=== PATIENT | female | born 1945 | race Caucasian/White ===

== ENCOUNTER → 2016-02-23 | Outpatient (REF) | payer OTHER ==
[~2016-02-23] MED LIST: AMLO2.5T PO; ARIC5TAB PO; ASPI81TA85 PO; BENA25CA2 IVP; BIOT50004 PO; CALC1TAB16 PO; CLOP75TA2 PO; INDA125TA PO; IRON65TA PO; LISI-538 PO; MULT1TAB10 PO; OMEP40CA2 PO; PRAV1TAB39 PO; PRAV20TA2 PO; PREV10CA PO; VALS1TAB46 PO; [UNRECOGNIZED DRUG - CODE] IV; [UNRECOGNIZED DRUG - CODE] PO; [UNRECOGNIZED DRUG - OTHER]
[2016-02-23 17:01] LABS: INR 0.97
[2016-02-23 17:23] LABS: COLLAGEN ADP > 300 SECONDS (56-103)
== END | disposition home or self-care (01) ==
LOC: M LAB REF 16:28
PROVIDERS: ATTEND Internal Medicine Medical Oncology
DX: D68.0 Von Willebrand disease (principal)

== ENCOUNTER → 2016-03-08 | Outpatient (REF) | payer OTHER ==
[~2016-03-08] MED LIST changes: +VALS1TAB47 PO
[2016-03-08 17:10] LABS: MEAN CORPUSCULAR HEMOGLOBIN 29.9 pg (27.0-33.0); MEAN CORPUSCULAR HGB CONC 33.7 g/dl (32.0-36.5); MEAN CORPUSCULAR VOLUME 88.6 fl (80.0-96.0); RED CELL DISTRIBUTION WIDTH 13.1 % (11.5-14.5); WHITE BLOOD COUNT 8.3 K/mm3 (4.0-10.0)
== END ==
LOC: M SFHCPLAZ 13:49
PROVIDERS: ATTEND Internal Medicine
DX: D64.9 Anemia, unspecified (principal)

== ENCOUNTER 2016-03-11 06:43 | Outpatient (CLI) | payer OTHER ==
[~2016-03-11] VITALS: Ht 152.4 cm; Wt 58.0 kg
[~2016-03-11 06:43] MED LIST changes: -VALS1TAB47 PO
[2016-03-11] MEDS ORDERED: diphenhydrAMINE INJ 50MG/ML VIAL (J1200) As Ordered ONE (06:57)
[2016-03-11] MEDS ORDERED: diphenhydrAMINE INJ 50MG/ML VIAL (J1200) IV ONE (07:15)
[2016-03-11] MEDS ORDERED: ANTIHEMOPHILIC FACTOR IV ONE (07:30)
[2016-03-11] MEDS ORDERED: DILUENT IV ONE (07:30)
[2016-03-11] MEDS ORDERED: [UNRECOGNIZED DRUG - OTHER] IV ONE (07:30)
[2016-03-11] MEDS ORDERED: VALS1TAB47 PO (08:56)
== END 2016-03-11 08:00 | disposition home or self-care (01) ==
LOC: M INFU 06:43
PROVIDERS: ATTEND Internal Medicine Medical Oncology
DX: D68.0 Von Willebrand disease (principal)
CPT/HCPCS: 96365; J1200; J7187

== ENCOUNTER 2016-03-11 08:20 | Inpatient (IN) | payer OTHER ==
[~2016-03-11] VITALS: Ht 152.4 cm; Wt 59.4 kg
[2016-03-11] VITALS (7 sets, daily range): BP systolic 120–152; BP diastolic 60–80
[2016-03-11] MEDS ORDERED: BUPIVACAINE LIPOSOME/PF 1.3% 20ML (266MG/20ML) VIAL (EXPAREL) As Ordered ONE (08:28)
[2016-03-11] MEDS ORDERED: BUPIVACAINE HCL 0.25% 10 ML VIAL As Ordered ONE (08:28)
[2016-03-11] MEDS ORDERED: LR 1,000 ML IV SCH ×3 (08:30→11:15)
[2016-03-11] MEDS ORDERED: metroNIDAZOLE 500 MG in APPROPRIATE DILUENT 1 EA IV ONE (08:30)
[2016-03-11] MEDS ORDERED: VALS1TAB47 PO (08:56)
[2016-03-11] MEDS ORDERED: BUPIVACAINE LIPOSOME/PF 1.3% 20ML (266MG/20ML) VIAL (EXPAREL) XX ONE (10:03)
[2016-03-11] MEDS ORDERED: BUPIVACAINE HCL 0.25% 10 ML VIAL XX ONE (10:04)
[2016-03-11] MEDS ORDERED: PROPOFOL 200 MG/20 ML VIAL As Ordered ONE (10:06)
[2016-03-11] MEDS ORDERED: fentaNYL 250 MCG/5 ML INJECTION (J3010) As Ordered ONE (10:06)
[2016-03-11] MEDS ORDERED: ROCURONIUM BROMIDE 50 MG/5 ML VIAL As Ordered ONE (10:06)
[2016-03-11] MEDS ORDERED: MIDAZOLAM INJ 2 MG/2 ML VIAL (J2250) As Ordered ONE (10:06)
[2016-03-11] MEDS ORDERED: GLYCOPYRROLATE INJ 0.2 MG/ML 2 ML VIAL As Ordered ONE (10:07)
[2016-03-11] MEDS ORDERED: HUMATE P IV ONE (11:00)
[2016-03-11] MEDS ORDERED: KETOROLAC 30 MG/ML VIAL (J1885) IV PRN (11:00)
[2016-03-11] MEDS ORDERED: ONDANSETRON 4MG/2ML VIAL (J2405) IV PRN ×2 (11:00→11:15)
[2016-03-11] MEDS ORDERED: ACETAMINOPHEN TAB 650MG DOSE (2X325MG) PO PRN (11:00)
[2016-03-11] MEDS ORDERED: NORCO, ANEXSIA 5/325MG TABLET (HYDROcodone/ACETAMINOPHEN) PO PRN (11:00)
[2016-03-11] MEDS ORDERED: MORPHINE 2 MG/ML 1ML SYRINGE IV PRN (11:00)
[2016-03-11] MEDS ORDERED: fentaNYL 100 MCG/2 ML INJECTION (J3010) IV PRN (11:15)
--- NOTE | 2016-03-11 11:54 | RO ---
DATE OF PROCEDURE: 03/11/2016 PREPROCEDURE DIAGNOSIS: Prolapsing internal hemorrhoids, engorged and swollen external hemorrhoids. PREPROCEDURE DIAGNOSIS: Prolapsing internal hemorrhoids, engorged and swollen external hemorrhoids. PROCEDURE DONE: Examination under anesthesia, excisional hemorrhoidectomy times two. SURGEON: Dr. Nguyen KID CLUB ATTENDANT: ANESTHESIA: General anesthesia. ESTIMATED BLOOD LOSS: Less than 5 mL. COMPLICATIONS: None. REMARKS: The patient tolerated the procedure well. PROCEDURE NOTE: Ms. Lopez is a 71-year-old female who has been going to my office with intermittent complaints of swelling and bleeding from her hemorrhoids. She came back in late January with persistent swelling of her hemorrhoids. Given her discomfort and bleeding with bowel movement for the past month or so, she notably has swollen and prolapsed internal hemorrhoids that I noted on the right lateral and anterior quadrant. She has a concurrent problem with Von Willebrand's disease. She saw her house shorer and she was given Humate P 2 hours prior to her surgery and will be continued perioperatively. She was brought to the operating room. General endotracheal anesthesia started without any complications. She placed in a prone jackknife position. Her buttocks retracted laterally with nylon tapes to further expose the anal verge. The area was then prepped and draped in usual sterile fashion. After surgical time-out, we began our surgery. She has noticeable engorged internal hemorrhoidal bundles, most prominent at the right lateral quadrant. While inserting the univalve anal speculum, the anterior quadrant also was noted to be loose and prolapsing. The left hemorrhoidal bundle was relatively small. I started over the anterior quadrant. The hemorrhoidal bundle, as well as the mucosal covering was lifted up with Allis forceps. The most proximal portion close to where it turns into the rectal mucosa was tied off with #3-0 chromic for hemostatic effect . The mucosa was opened up circumferentially with Bovie cautery. I used a harmonic scalpel to dissect the hemorrhoidal bundle from the sphincter muscles and divide this down to the where I initially put a purse ligature. After this, the redundant mucosa and skin was then closed using the previously placed #3-0 chromic. This was similarly done over the more prominent right lateral bundle. This was lifted off with three pairs of Allis forceps. Again, the most proximal portion was tied off with #3-0 chromic. I opened up the mucosa, as well as the external scan lining with the Bovie cautery and similarly used the Harmonic scalpel to dissect the hemorrhoidal bundle and divided this. After making sure of adequate hemostasis, this was similarly closed with running stitch of #3-0 chromic. I palpated around the left lateral bundle and it seems to be still not that engorged. At this point, I circumferentially injected both subcutaneously and intramuscularly mixture of Exparel and 0.25% bupivacaine for postoperative pain control. A Vaseline gauze and postop underwear were used for coverage. The patient was then placed in supine position, extubated, brought to recovery room stable. AZAEL
[2016-03-11] MEDS: NORCO, ANEXSIA 5/325MG TABLET (HYDROcodone/ACETAMINOPHEN) PO PRN (12:05)
[2016-03-11] MEDS: PRAVASTATIN 20 MG TAB PO SCH (14:28)
[2016-03-11] MEDS: FERROUS SULFATE 325MG TAB PO SCH (14:29)
[2016-03-11] MEDS: SENOKOT S TAB PO SCH ×2 (14:29→22:10)
[2016-03-11] MEDS: OMEPRAZOLE 20 MG CAP PO SCH (14:29)
[2016-03-11] MEDS: VALSARTAN 80 MG TAB (DIOVAN) PO SCH (14:30)
[2016-03-11] MEDS ORDERED: diphenhydrAMINE INJ 50MG/ML VIAL (J1200) IV ONE (14:30)
[2016-03-11] MEDS ORDERED: DILUENT IV ONE (15:00)
[2016-03-11] MEDS ORDERED: [UNRECOGNIZED DRUG - OTHER] IV ONE (15:00)
[2016-03-11] MEDS ORDERED: ANTIHEMOPHILIC FACTOR IV ONE (15:00)
[2016-03-11] MEDS: INDAPAMIDE 1.25MG TABLET PO SCH (18:03)
[2016-03-11] MEDS: DONEPEZIL 5 MG TAB PO SCH (22:11)
[2016-03-12 02:00] VITALS: BP 134/72
[2016-03-12 06:07] LABS: MEAN CORPUSCULAR HGB CONC 34.4 g/dl (32.0-36.5); MEAN CORPUSCULAR VOLUME 87.2 fl (80.0-96.0); WHITE BLOOD COUNT 7.4 K/mm3 (4.0-10.0)
[2016-03-12 06:10] VITALS: BP 124/60
[2016-03-12] MEDS ORDERED: diphenhydrAMINE INJ 50MG/ML VIAL (J1200) IV ONE (07:30)
[2016-03-12] MEDS ORDERED: [UNRECOGNIZED DRUG - OTHER] IV ONE (08:00)
[2016-03-12] MEDS ORDERED: ANTIHEMOPHILIC FACTOR IV ONE (08:00)
[2016-03-12] MEDS ORDERED: DILUENT IV ONE (08:00)
[2016-03-12] MEDS ORDERED: HUMATE P IV SCH (09:00)
[2016-03-12] MEDS: VALSARTAN 80 MG TAB (DIOVAN) PO SCH (09:05)
[2016-03-12] MEDS: INDAPAMIDE 1.25MG TABLET PO SCH (09:05)
[2016-03-12] MEDS: FERROUS SULFATE 325MG TAB PO SCH (09:05)
[2016-03-12] MEDS: OMEPRAZOLE 20 MG CAP PO SCH (09:05)
[2016-03-12] MEDS: SENOKOT S TAB PO SCH ×2 (09:05→20:27)
[2016-03-12] MEDS: PRAVASTATIN 20 MG TAB PO SCH (09:05)
[2016-03-12 10:00] VITALS: BP 142/69
[2016-03-12 14:00] VITALS: BP 110/61
[2016-03-12] MEDS: NORCO, ANEXSIA 5/325MG TABLET (HYDROcodone/ACETAMINOPHEN) PO PRN ×2 (17:40→22:25)
[2016-03-12 18:00] VITALS: BP 134/82
[2016-03-12] MEDS: DONEPEZIL 5 MG TAB PO SCH (20:27)
[2016-03-12 21:20] VITALS: BP 127/64
[2016-03-13 06:25] VITALS: BP 126/67
[2016-03-13] MEDS ORDERED: diphenhydrAMINE INJ 50MG/ML VIAL (J1200) IV ONE (07:30)
[2016-03-13] MEDS ORDERED: DILUENT IV ONE (08:00)
[2016-03-13] MEDS ORDERED: [UNRECOGNIZED DRUG - OTHER] IV ONE (08:00)
[2016-03-13] MEDS ORDERED: ANTIHEMOPHILIC FACTOR IV ONE (08:00)
[2016-03-13] MEDS: INDAPAMIDE 1.25MG TABLET PO SCH (09:15)
[2016-03-13] MEDS: SENOKOT S TAB PO SCH (09:15)
[2016-03-13] MEDS: OMEPRAZOLE 20 MG CAP PO SCH (09:15)
[2016-03-13] MEDS: PRAVASTATIN 20 MG TAB PO SCH (09:15)
[2016-03-13 09:16] VITALS: BP 129/67
[2016-03-13] MEDS: FERROUS SULFATE 325MG TAB PO SCH (09:16)
[2016-03-13] MEDS: VALSARTAN 80 MG TAB (DIOVAN) PO SCH (09:16)
[2016-03-13] MEDS: NORCO, ANEXSIA 5/325MG TABLET (HYDROcodone/ACETAMINOPHEN) PO PRN (09:27)
[2016-03-13 10:00] VITALS: BP 142/93
--- NOTE | 2016-03-21 17:27 | DSES ---
DATE OF ADMISSION: 03/11/2016 DATE OF DISCHARGE: 03/13/2016 DISCHARGE DIAGNOSES: 1. Enlarged and inflamed external, internal hemorrhoids status post excisional hemorrhoidectomy. 2. Von Willebrand's disease. 3. Dementia. DISCHARGE MEDICATIONS: She is continued on her medications that include - donepezil - Aricept 5 mg daily - indapamide 1.25 mg daily - Iron 650 mg daily - multivitamins - omeprazole 40 mg daily - pravastatin 20 mg at bedtime - Valsartan 160 mg at bedtime - Hydrocodone / acetaminophen 5/325 mg tablet every 4 hours as needed for pain She is also getting Humate P infusion daily to be continued on March 14 and . DISCHARGE INSTRUCTIONS: 1. Warm sitz bath twice a day and after every bowel movement Pat area dry. Keep some dry gauze to catch drainage 2. Activity as tolerated. HOSPITAL COURSE: Ms. Lopez is a 71-year-old female with Von Willebrand's disease. She has been complaining of problems with her hemorrhoids, has worsened and now needs surgical excision. She has Von Willebrand's disease with low Willebrand's factor as tested by her computer software engineer. She was given the weight Humate P during the day of the surgery and perioperatively to control for bleeding. She underwent an elective excisional hemorrhoidectomy. Details of that been dictated separately. She did well overall. She was kept in the hospital for Humate P the infusions, which is given perioperatively and is planned to be given up to her 3 days postop. Unfortunately our infusion unit are closed on the weekend that she could not be discharged home. Otherwise she did well. Pain was properly controlled with her pain medication. She did not have any bowel movements during her stay in the hospital. After getting the appropriate time Humate P infusion she was subsequently discharged home. She will follow up with me in two weeks' time.
== END 2016-03-13 12:49 | disposition home or self-care (01) | DRG 348 ==
LOC: M SDC 08:20 → M MSPAV 10:47
PROVIDERS: ADMIT Surgery; ATTEND Surgery
PROC: 0DBQ7ZZ Excision of Anus, Via Natural or Artificial Opening (ICD-10-PCS; principal; 2016-03-11 09:25)
DX: K64.8 Other hemorrhoids (principal); D68.0 Von Willebrand disease; D64.9 Anemia, unspecified; K64.4 Residual hemorrhoidal skin tags; I10 Essential (primary) hypertension; F09 Unspecified mental disorder due to known physiological condition; I25.10 Atherosclerotic heart disease of native coronary artery without angina pectoris; I25.2 Old myocardial infarction; Z87.891 Personal history of nicotine dependence; Z79.899 Other long term (current) drug therapy

== ENCOUNTER 2016-03-14 07:52 | Outpatient (CLI) | payer OTHER ==
[~2016-03-14 07:52] MED LIST changes: +VALS1TAB47 PO
[2016-03-14] MEDS ORDERED: diphenhydrAMINE INJ 50MG/ML VIAL (J1200) IV ONE (08:15)
[2016-03-14 08:53] LABS: MEAN CORPUSCULAR HEMOGLOBIN 30.7 pg (27.0-33.0); MEAN CORPUSCULAR HGB CONC 35.1 g/dl (32.0-36.5); MEAN CORPUSCULAR VOLUME 87.5 fl (80.0-96.0); RED CELL DISTRIBUTION WIDTH 12.7 % (11.5-14.5); WHITE BLOOD COUNT 7.1 K/mm3 (4.0-10.0)
[2016-03-14] MEDS ORDERED: [UNRECOGNIZED DRUG - OTHER] IV ONE (09:00)
[2016-03-14] MEDS ORDERED: ANTIHEMOPHILIC FACTOR IV ONE (09:00)
[2016-03-14] MEDS ORDERED: DILUENT IV ONE (09:00)
== END 2016-03-14 09:45 | disposition home or self-care (01) ==
LOC: M INFU 07:52
PROVIDERS: ATTEND Internal Medicine Medical Oncology
DX: D68.0 Von Willebrand disease (principal)

== ENCOUNTER 2016-03-14 13:04 | Emergency (ER) | payer OTHER ==
[2016-03-14 14:40] LABS: BASO % 0.2 % (0.0-1.0); EOS % 0.6 % (0.0-3.0); LARGE UNSTAINED CELL # 0.1 K/mm3 (0.0-0.4); LARGE UNSTAINED CELL % 1.9 % (0.0-4.0); LYMPH # 0.8 K/mm3 (1.5-4.5); LYMPH % 12.7 % (24.0-44.0); MEAN CORPUSCULAR HEMOGLOBIN 29.9 pg (27.0-33.0); MEAN CORPUSCULAR HGB CONC 34.7 g/dl (32.0-36.5); MEAN CORPUSCULAR VOLUME 86.2 fl (80.0-96.0); MONO # 0.4 K/mm3 (0.0-0.8); MONO % 6.5 % (0.0-5.0); NEUTROPHILS % 78.1 % (36.0-66.0); PLATELET COUNT, AUTOMATED 169 k/mm3 (150-450); RED CELL DISTRIBUTION WIDTH 12.6 % (11.5-14.5); WHITE BLOOD COUNT 6.3 K/mm3 (4.0-10.0)
[2016-03-14 14:43] LABS: INR 0.98
[2016-03-14 14:53] LABS: ALBUMIN 3.8 GM/DL (3.2-5.2); ALBUMIN/GLOBULIN RATIO 1.06 (1.00-1.93); ALKALINE PHOSPHATASE 83 U/L (45-117); ALT/SGPT 83 U/L (12-78); ANION GAP 10 MEQ/L (8-16); AST/SGOT 40 U/L (15-37); BILIRUBIN,TOTAL 0.6 MG/DL (0.2-1.0); BLOOD UREA NITROGEN 10 MG/DL (7-18); CALCIUM LEVEL 8.6 MG/DL (8.8-10.2); CARBON DIOXIDE LEVEL 29 MEQ/L (21-32); CHLORIDE LEVEL 95 MEQ/L (98-107); GLOMERULAR FILTRATION RATE > 60.0 (>39); GLUCOSE, FASTING 126 MG/DL (83-110); POTASSIUM SERUM 3.2 MEQ/L (3.5-5.1); SODIUM LEVEL 134 MEQ/L (136-145); TOTAL PROTEIN 7.4 GM/DL (6.4-8.2)
--- NOTE | 2016-03-14 18:50 | EDDOCDS ---
Nurse's Notes [facility] Name: Emerald Lopez Age: 71 yrs Sex: Female : 1945 Arrival Date: 03/14/2016 Time: 13:04 Bed 4 Private MD: Brendan Ingram Diagnosis: Unspecified injury of hncznv-emev-bmknwqghhvwdrmeq bleeding Presentation: 03/14 13:16 Presenting complaint: Patient states: Patient had a Hemoriod's removed on Monday and js13 started at approx 1200 today. Patient had an infusion Humate P at 0800. Adult Sepsis Screening: The patient does not have new or worsening altered mentation. Patient's respiratory rate is less than 22. Systolic blood pressure is greater than 100. Patient has a qSOFA score of 0- Negative Sepsis Screen. Suicide/Homicide risk assessment- the patient denies having any suicidal and/or homicidal ideations and does not present with any other emotional, behavioral or mental health complaints. Status: Patient is not a auto service representative or dependent. Transition of care: patient was not received from another setting of care. Red Flag criteria, patient assessed and taken directly to a bed. 13:16 Acuity: NEGRO Level 3 js13 13:16 Method Of Arrival: Walkin/Carried/Asstd js13 Triage Assessment: 13:21 General: Appears in no apparent distress, Behavior is appropriate for age, cooperative. js13 Pain: Denies pain. Neurological: Level of Consciousness is awake, alert. Respiratory: No deficits noted. Derm: Skin is pink, warm & dry. Historical: - Allergies: No known drug Allergies; - Home Meds: 1. donepezil 5 mg oral tab 1 tab nightly 2. indapamide 1.25 mg Oral tab 1 tab once daily 3. ferrous sulfate 325 mg (65 mg iron) Oral cpER daily 4. multivitamin Oral tab 1 tablet daily 5. omeprazole 40 mg Oral cpDR 1 cap once daily 6. valsartan 160 mg oral tab 1 tab nightly 7. pravastatin 20 mg oral tab 1 tab nightly - PMHx: CAD; Hypercholesterolemia; Hypertension; Dementia; - PSHx: Cholecystectomy; Hysterectomy; Cardiac stents; Eye Surgeries; - Social history: Smoking status: Patient states former smoker of tobacco. No barriers to communication noted, The patient speaks fluent German. - Family history: Not pertinent. - : The pt / caregiver states he / she is not on anticoagulants. Home medication list is obtained from the patient, family members. - Exposure Risk Screening:: None identified. Screenin:45 Screening information is obtained from the patient. Fall risk: No risks identified. ms18 Assistance ADL's: requires no assistance with activities of daily living. Abuse/DV Screen: The patient / caregiver reports he/she is: not in a situation that causes fear, pain or injury. Nutritional screening: No deficits noted. home support is adequate. 18:17 Advance Directives: There is no living will. ms18 Assessment: 13:45 General: Appears in no apparent distress, comfortable, Behavior is appropriate for age, ms18 cooperative, pleasant. Pain: Location: back and buttocks. Neurological: Level of Consciousness is awake, alert, obeys commands, Oriented to person, place, time. Respiratory: Airway is patent Respiratory effort is even, unlabored. GI: Reports rectal bleeding. Derm: Skin is pink, warm & dry. 14:30 General: Pt in no acute distress. VSS. Will continue to monitor pt. ms18 15:21 General: Appears in no apparent distress, comfortable, Behavior is appropriate for age, ms18 cooperative, pleasant. General: Pt in no acute distress. VSS. Sarina Andrade LOCAL COORDINATOR was just in to see the pt and examine her rectal area. PT not actively bleeding at this time. . Pain: Location: gluteal cleft. Neurological: No deficits noted. Respiratory: No deficits noted. Derm: Skin is pink, warm & dry. 16:06 General: Appears in no apparent distress, comfortable, Behavior is appropriate for age, ms18 cooperative. General: H&H blood draw is for 1730 per L. uLpe LOCAL COORDINATOR. Neurological: Level of Consciousness is awake, alert, obeys commands, Oriented to person, place, time. Respiratory: Airway is patent Respiratory effort is even, unlabored. Derm: Skin is pink, warm & dry. 18:46 General: Appears Behavior is appropriate for age, cooperative, pleasant. Pain: ms18 Location: gluteal cleft Pain currently is 3 out of 10 on a pain scale. Neurological: No deficits noted. Respiratory: Airway is patent Respiratory effort is even, unlabored. GI: Abdomen is non- distended. Derm: Skin is pink, warm & dry. Vital Signs: 13:07 BP 156 / 79; Pulse 60; Resp 18; Temp 98.5(O); Pulse Ox 100% on R/A; Weight 61.23 kg; jrd Height 5 ft. 0 in. (152.40 cm) (R); Pain 0/10; 13:20 BP 155 / 78; Pulse 65; Resp 20; Temp 99.8(TE); Pulse Ox 100% on R/A; Weight 61.23 kg; jlf Height 5 ft. 0 in. (152.40 cm); Pain 9/10; 13:38 BP 149 / 71 (auto/); ms18 13:38 Pulse 58 MON; Pulse Ox 98% ; ms18 13:47 BP 146 / 70 (auto/); ms18 13:48 Pulse 58 MON; Pulse Ox 98% ; ms18 14:02 BP 141 / 74 (auto/); ms18 14:02 Pulse 58 MON; Pulse Ox 96% ; ms18 14:17 BP 145 / 74 (auto/); ms18 14:18 Pulse 56 MON; Pulse Ox 97% ; ms18 14:32 BP 143 / 74 (auto/); ms18 14:32 Pulse 56 MON; Pulse Ox 97% ; ms18 14:47 Pulse 58 MON; Pulse Ox 99% ; ms18 14:47 BP 141 / 74 (auto/); ms18 15:02 BP 136 / 72 (auto/); ms18 15:06 Pulse 64 MON; Pulse Ox 98% ; ms18 15:17 Pulse 64 MON; Pulse Ox 100% ; ms18 15:17 BP 171 / 76 (auto/); Resp 18; ms18 15:31 Pulse 60 MON; Pulse Ox 99% ; ms18 15:32 BP 139 / 65 (auto/); ms18 15:47 BP 133 / 82 (auto/); ms18 15:47 Pulse 60 MON; Pulse Ox 98% ; ms18 16:01 Pulse 64 MON; Pulse Ox 98% ; ms18 16:02 BP 136 / 67 (auto/); ms18 16:17 BP 146 / 70 (auto/); ms18 16:17 Pulse 62 MON; ms18 16:32 BP 150 / 76 (auto/); ms18 16:32 Pulse 60 MON; ms18 16:47 BP 138 / 74 (auto/); ms18 16:47 Pulse 62 MON; ms18 17:02 BP 137 / 70 (auto/); ms18 17:02 Pulse 60 MON; ms18 17:17 BP 140 / 74 (auto/); ms18 17:32 BP 164 / 77 (auto/); ms18 17:47 BP 149 / 74 (auto/); ms18 17:48 Pulse 62 MON; Pulse Ox 95% ; ms18 18:02 BP 137 / 65 (auto/); ms18 18:02 Pulse 58 MON; Pulse Ox 95% ; ms18 18:16 Pulse 60 MON; Pulse Ox 95% ; ms18 18:17 BP 165 / 77 (auto/); Resp 18; Temp 98.8; ms18 13:20 Body Mass Index 26.37 (61.23 kg, 152.40 cm) [facility] Vitals: 13:07 Log In Time: March 14, 2016 at 13:05. jrd 13:07 RN notified that patient meets Red Flag criteria. [facility] ED Course: 13:06 Patient visited by Hesham Boogie PCA. jrd 13:06 Patient moved to Waiting jrd 13:07 Brendan Ingram is Private Physician. jrd 13:14 Jody Bui,RN is Primary Nurse. jlf 13:14 Patient moved to 4 jlf 13:18 Triage Initiated js13 13:20 Patient visited by Austyn Cifuentes PCA. jlf 13:21 Patient visited by Austyn Cifuentes PCA. jlf 13:22 Patient visited by Angela Solis,SUKHDEV. js13 13:44 Patient visited by Jody Bui,SUKHDEV. ms18 13:45 The patient / caregiver is instructed regarding the plan of care and ED course. ms18 Accompanied by Significant Other, Patient has correct armband on for positive identification. Bed in low position. Call light in reach. Side rails up X2. compliance monitor on. Pulse ox on. NIBP on. Property :Personal belongings accompany Pt. 13:45 Inserted saline lock: 20 gauge in left forearm and blood collected. The patient ms18 tolerated the procedure well. 14:19 Pt & Aptt Sent. ms18 14:19 Type & Screen Sent. ms18 14:19 CBC with Diff Sent. ms18 14:19 Complete Comphrensive Metabolic Sent. ms18 14:44 Sarina Andrade FNP is PHCP. le 14:45 Patient visited by Jody Bui RN. ms18 15:05 Patient visited by Sarina Andrade FNP. le 15:06 Patient visited by Sarina Andrade FNP. le 15:21 Patient visited by Jody Bui RN. ms18 16:00 Patient visited by Jody Bui RN. ms18 16:51 Patient visited by Austyn Cifuentes PCA. jlf 17:34 Patient visited by Jody Bui RN. ms18 18:11 Adarsh Nguyen MD is Referral Physician. le 18:17 Discontinued IV lock intact, bleeding controlled, pressure dressing applied, No ms18 redness/swelling at site. No procedures done that require assistance. 18:46 Patient visited by Jody Bui RN. ms18 Order Results: Lab Order: Complete Comphrensive Metabolic; SPEC'M 03/14/16 13:40 Test: GLUCOSE, FASTING; Value: 126; Range: 83-110; Abnormal: Above high normal; Units: MG/DL; Status: F Test: BLOOD UREA NITROGEN; Value: 10; Range: 7-18; Units: MG/DL; Status: F Test: CREATININE FOR GFR; Value: 0.60; Range: 0.55-1.02; Units: MG/DL; Status: F Test: GLOMERULAR FILTRATION RATE; Value: > 60.0; Range: >39; Status: F Test: SODIUM LEVEL; Value: 134; Range: 136-145; Abnormal: Below low normal; Units: MEQ/L; Status: F Test: POTASSIUM SERUM; Value: 3.2; Range: 3.5-5.1; Abnormal: Below low normal; Units: MEQ/L; Status: F Test: CHLORIDE LEVEL; Value: 95; Range: 98-107; Abnormal: Below low normal; Units: MEQ/L; Status: F Test: CARBON DIOXIDE LEVEL; Value: 29; Range: 21-32; Units: MEQ/L; Status: F Test: ANION GAP; Value: 10; Range: 8-16; Units: MEQ/L; Status: F Test: CALCIUM LEVEL; Value: 8.6; Range: 8.8-10.2; Abnormal: Below low normal; Units: MG/DL; Status: F Test: AST/SGOT; Value: 40; Range: 15-37; Abnormal: Above high normal; Units: U/L; Status: F Test: ALT/SGPT; Value: 83; Range: 12-78; Abnormal: Above high normal; Units: U/L; Status: F Test: ALKALINE PHOSPHATASE; Value: 83; Range: 45-117; Units: U/L; Status: F Test: BILIRUBIN,TOTAL; Value: 0.6; Range: 0.2-1.0; Units: MG/DL; Status: F Test: TOTAL PROTEIN; Value: 7.4; Range: 6.4-8.2; Units: GM/DL; Status: F Test: ALBUMIN; Value: 3.8; Range: 3.2-5.2; Units: GM/DL; Status: F Test: ALBUMIN/GLOBULIN RATIO; Value: 1.06; Range: 1.00-1.93; Status: F Test Note: ; Units are mL/min/1.73 m2 Chronic Kidney Disease Staging per NKF: Stage I & II GFR >=60 Normal to Mildly Decreased Stage III GFR 30-59 Moderately Decreased Stage IV GFR 15-29 Severely Decreased Stage V GFR <15 Very Little GFR Left ESRD GFR <15 on IT SECURITY ENGINEER Lab Order: CBC with Diff; SPEC'M 03/14/16 13:40 Test: WHITE BLOOD COUNT; Value: 6.3; Range: 4.0-10.0; Units: K/mm3; Status: F Test: RED BLOOD COUNT; Value: 4.23; Range: 4.00-5.40; Units: M/mm3; Status: F Test: HEMOGLOBIN; Value: 12.6; Range: 12.0-16.0; Units: g/dl; Status: F Test: HEMATOCRIT; Value: 36.4; Range: 36.0-47.0; Units: %; Status: F Test: MEAN CORPUSCULAR VOLUME; Value: 86.2; Range: 80.0-96.0; Units: fl; Status: F Test: MEAN CORPUSCULAR HEMOGLOBIN; Value: 29.9; Range: 27.0-33.0; Units: pg; Status: F Test: MEAN CORPUSCULAR HGB CONC; Value: 34.7; Range: 32.0-36.5; Units: g/dl; Status: F Test: RED CELL DISTRIBUTION WIDTH; Value: 12.6; Range: 11.5-14.5; Units: %; Status: F Test: PLATELET COUNT, AUTOMATED; Value: 169; Range: 150-450; Units: k/mm3; Status: F Test: NEUTROPHILS %; Value: 78.1; Range: 36.0-66.0; Abnormal: Above high normal; Units: %; Status: F Test: LYMPH %; Value: 12.7; Range: 24.0-44.0; Abnormal: Below low normal; Units: %; Status: F Test: MONO %; Value: 6.5; Range: 0.0-5.0; Abnormal: Above high normal; Units: %; Status: F Test: EOS %; Value: 0.6; Range: 0.0-3.0; Units: %; Status: F Test: BASO %; Value: 0.2; Range: 0.0-1.0; Units: %; Status: F Test: LARGE UNSTAINED CELL %; Value: 1.9; Range: 0.0-4.0; Units: %; Status: F Test: NEUTROPHILS #; Value: 5.0; Range: 1.8-7.7; Units: K/mm3; Status: F Test: LYMPH #; Value: 0.8; Range: 1.5-4.5; Abnormal: Below low normal; Units: K/mm3; Status: F Test: MONO #; Value: 0.4; Range: 0.0-0.8; Units: K/mm3; Status: F Test: EOS #; Value: 0.0; Range: 0.0-0.50; Units: K/mm3; Status: F Test: BASO #; Value: 0.0; Range: 0.0-0.2; Units: K/mm3; Status: F Test: LARGE UNSTAINED CELL #; Value: 0.1; Range: 0.0-0.4; Units: K/mm3; Status: F Lab Order: Type & Screen; [facility]' 03/14/16 14:46 Test: BLOOD TYPE; Value: O POS; Status: F Test: AB SCREEN (INDIRECT LUANN)GEL; Value: NEGATIVE; Status: F Lab Order: Pt & Aptt; SPEC' 03/14/16 13:40 Test: PROTHROMBIN TIME; Value: 13.1; Range: 12.3-14.5; Units: SECONDS; Status: F Test: INR; Value: 0.98; Status: F Test: PARTIAL THROMBOPLASTIN TIME; Value: 30.0; Range: 26.6-37.1; Units: SECONDS; Status: F Test Note: ; THERAPUTIC HUMAN INR VALUES INDICATIONS NORMAL RANGES PROPHYLAXIS/TREATMENT OF: VENOUS THROMBOSIS 2.0-3.0 PULMONARY EMBOLISM 2.0-3.0 PREVENTION OF SYSTEMIC EMBOLISM FROM: TISSUE HEART VALVES 2.0-3.0 ACUTE MYOCARDIAL INFARCTION 2.0-3.0 VALVULAR HEART DISEASE 2.0-3.0 ATRIAL FIBRILLATION 2.0-3.0 MECHANICAL VALVES(HIGH RISK) 2.5-3.5 RECURRENT MYOCARDIAL INFARCTION 2.5-3.5 Lab Order: HEMOGLOBIN & HEMATOCRIT; SPEC'M 03/14/16 17:42 Test: HEMOGLOBIN; Value: 12.6; Range: 12.0-16.0; Units: g/dl; Status: F Test: HEMATOCRIT; Value: 36.3; Range: 36.0-47.0; Units: %; Status: F Outcome: 18:11 Discharge ordered by Provider. le 18:17 Discharge Assessment: Patient awake, alert and oriented x 3. No cognitive and/or ms18 functional deficits noted. Patient verbalized understanding of disposition instructions. patient administered narcotics - no. The following High Risk Discharge criteria are identified: None. Discharged to home ambulatory, with significant other. Condition: good Condition: stable Condition: improved. Discharge instructions given to patient, Instructed on discharge instructions, follow up and referral plans. Demonstrated understanding of instructions, Pt was receptive of discharge instructions/ teaching. No special radiology studies were completed. 18:49 Patient left the ED. ms18 Signatures: Sarina Andrade, LOCAL COORDINATOR Angela Teague,RN RN js13 Austyn Cifuentes, RETAIL BUSINESS ANALYST RETAIL BUSINESS ANALYST Jody Wu RN RN ms18 Hesham Boogie, RETAIL BUSINESS ANALYST RETAIL BUSINESS ANALYST jrd MTDD
--- NOTE | 2016-03-14 18:50 | EDDOCDS ---
Physician Documentation [facility] Name: Emerald Lopez Age: 71 yrs Sex: Female : 1945 Arrival Date: 03/14/2016 Time: 13:04 Bed 4 Private MD: Brendan Ingram Disposition: 03/14/16 18:11 Discharged to Home/Self Care. Impression: Unspecified injury of rectum - post-hemorrhoidectomy bleeding. - Condition is Stable. - Discharge Instructions: Hemorrhoidectomy, Care After. - Medication Reconciliation, Local Pharmacy Hours form. - Follow up: Adarsh Nguyen MD; When: Call to arrange an appointment; Reason: Recheck today's complaints, Continuance of care. - Problem is new. - Symptoms have improved. - Notes: Return to the ED for any further concerns Historical: - Allergies: No known drug Allergies; - Home Meds: 1. donepezil 5 mg oral tab 1 tab nightly 2. indapamide 1.25 mg Oral tab 1 tab once daily 3. ferrous sulfate 325 mg (65 mg iron) Oral cpER daily 4. multivitamin Oral tab 1 tablet daily 5. omeprazole 40 mg Oral cpDR 1 cap once daily 6. valsartan 160 mg oral tab 1 tab nightly 7. pravastatin 20 mg oral tab 1 tab nightly - PMHx: CAD; Hypercholesterolemia; Hypertension; Dementia; - PSHx: Cholecystectomy; Hysterectomy; Cardiac stents; Eye Surgeries; - Social history: Smoking status: Patient states former smoker of tobacco. No barriers to communication noted, The patient speaks fluent Armenian. - Family history: Not pertinent. - : The pt / caregiver states he / she is not on anticoagulants. Home medication list is obtained from the patient, family members. - Exposure Risk Screening:: None identified. Vital Signs: 03/14 13:07 BP 156 / 79; Pulse 60; Resp 18; Temp 98.5(O); Pulse Ox 100% on R/A; Weight 61.23 kg / jrd 134.99 lbs; Height 5 ft. 0 in. (152.40 cm) (R); Pain 0/10; 13:20 BP 155 / 78; Pulse 65; Resp 20; Temp 99.8(TE); Pulse Ox 100% on R/A; Weight 61.23 kg / jlf 134.99 lbs; Height 5 ft. 0 in. (152.40 cm); Pain 9/10; 13:38 BP 149 / 71 (auto/); ms18 13:38 Pulse 58 MON; Pulse Ox 98% ; ms18 13:47 BP 146 / 70 (auto/); ms18 13:48 Pulse 58 MON; Pulse Ox 98% ; ms18 14:02 BP 141 / 74 (auto/); ms18 14:02 Pulse 58 MON; Pulse Ox 96% ; ms18 14:17 BP 145 / 74 (auto/); ms18 14:18 Pulse 56 MON; Pulse Ox 97% ; ms18 14:32 BP 143 / 74 (auto/); ms18 14:32 Pulse 56 MON; Pulse Ox 97% ; ms18 14:47 Pulse 58 MON; Pulse Ox 99% ; ms18 14:47 BP 141 / 74 (auto/); ms18 15:02 BP 136 / 72 (auto/); ms18 15:06 Pulse 64 MON; Pulse Ox 98% ; ms18 15:17 Pulse 64 MON; Pulse Ox 100% ; ms18 15:17 BP 171 / 76 (auto/); Resp 18; ms18 15:31 Pulse 60 MON; Pulse Ox 99% ; ms18 15:32 BP 139 / 65 (auto/); ms18 15:47 BP 133 / 82 (auto/); ms18 15:47 Pulse 60 MON; Pulse Ox 98% ; ms18 16:01 Pulse 64 MON; Pulse Ox 98% ; ms18 16:02 BP 136 / 67 (auto/); ms18 16:17 BP 146 / 70 (auto/); ms18 16:17 Pulse 62 MON; ms18 16:32 BP 150 / 76 (auto/); ms18 16:32 Pulse 60 MON; ms18 16:47 BP 138 / 74 (auto/); ms18 16:47 Pulse 62 MON; ms18 17:02 BP 137 / 70 (auto/); ms18 17:02 Pulse 60 MON; ms18 17:17 BP 140 / 74 (auto/); ms18 17:32 BP 164 / 77 (auto/); ms18 17:47 BP 149 / 74 (auto/); ms18 17:48 Pulse 62 MON; Pulse Ox 95% ; ms18 18:02 BP 137 / 65 (auto/); ms18 18:02 Pulse 58 MON; Pulse Ox 95% ; ms18 18:16 Pulse 60 MON; Pulse Ox 95% ; ms18 18:17 BP 165 / 77 (auto/); Resp 18; Temp 98.8; ms18 13:20 Body Mass Index 26.37 (61.23 kg, 152.40 cm) [facility] MDM: 14:03 Complete Comphrensive Metabolic Ordered. EDMS 14:03 CBC with Diff Ordered. EDMS 14:03 Type & Screen Ordered. EDMS 14:03 Pt & Aptt Ordered. EDMS 14:45 CBC with Diff Reviewed. le 15:21 Complete Comphrensive Metabolic Reviewed. le 15:21 Pt & Aptt Reviewed. le 15:41 Redraw Labs ordered. le 15:43 Redraw Labs complete. deg 15:43 HEMOGLOBIN & HEMATOCRIT Ordered. EDMS 18:06 HEMOGLOBIN & HEMATOCRIT Reviewed. le 18:08 Type & Screen Reviewed. le Signatures: Dispatcher [employer] EDLisa Carter, Pipe Fitter [employer] deg Sarina Andrade, EARLY INTERVENTIONIST EARLY INTERVENTIONIST Angela Castillo,RN RN js13 Jody Bui RN RN ms18 MTDD
--- NOTE | 2016-03-16 19:49 | EDDOCDS ---
Physician Documentation [facility] Name: Emerald Lopez Age: 71 yrs Sex: Female : 1945 Arrival Date: 03/14/2016 Time: 13:04 Bed 4 Private MD: Brendan Ingram Disposition: 03/14/16 18:11 Discharged to Home/Self Care. Impression: Unspecified injury of rectum - post-hemorrhoidectomy bleeding. - Condition is Stable. - Discharge Instructions: Hemorrhoidectomy, Care After. - Medication Reconciliation, Local Pharmacy Hours form. - Follow up: Adarsh Nguyen MD; When: Call to arrange an appointment; Reason: Recheck today's complaints, Continuance of care. - Problem is new. - Symptoms have improved. - Notes: Return to the ED for any further concerns Historical: - Allergies: No known drug Allergies; - Home Meds: 1. donepezil 5 mg oral tab 1 tab nightly 2. indapamide 1.25 mg Oral tab 1 tab once daily 3. ferrous sulfate 325 mg (65 mg iron) Oral cpER daily 4. multivitamin Oral tab 1 tablet daily 5. omeprazole 40 mg Oral cpDR 1 cap once daily 6. valsartan 160 mg oral tab 1 tab nightly 7. pravastatin 20 mg oral tab 1 tab nightly - PMHx: CAD; Hypercholesterolemia; Hypertension; Dementia; - PSHx: Cholecystectomy; Hysterectomy; Cardiac stents; Eye Surgeries; - Social history: Smoking status: Patient states former smoker of tobacco. No barriers to communication noted, The patient speaks fluent Sinhala. - Family history: Not pertinent. - : The pt / caregiver states he / she is not on anticoagulants. Home medication list is obtained from the patient, family members. - Exposure Risk Screening:: None identified. Vital Signs: 03/14 13:07 BP 156 / 79; Pulse 60; Resp 18; Temp 98.5(O); Pulse Ox 100% on R/A; Weight 61.23 kg / jrd 134.99 lbs; Height 5 ft. 0 in. (152.40 cm) (R); Pain 0/10; 13:20 BP 155 / 78; Pulse 65; Resp 20; Temp 99.8(TE); Pulse Ox 100% on R/A; Weight 61.23 kg / jlf 134.99 lbs; Height 5 ft. 0 in. (152.40 cm); Pain 9/10; 13:38 BP 149 / 71 (auto/); ms18 13:38 Pulse 58 MON; Pulse Ox 98% ; ms18 13:47 BP 146 / 70 (auto/); ms18 13:48 Pulse 58 MON; Pulse Ox 98% ; ms18 14:02 BP 141 / 74 (auto/); ms18 14:02 Pulse 58 MON; Pulse Ox 96% ; ms18 14:17 BP 145 / 74 (auto/); ms18 14:18 Pulse 56 MON; Pulse Ox 97% ; ms18 14:32 BP 143 / 74 (auto/); ms18 14:32 Pulse 56 MON; Pulse Ox 97% ; ms18 14:47 Pulse 58 MON; Pulse Ox 99% ; ms18 14:47 BP 141 / 74 (auto/); ms18 15:02 BP 136 / 72 (auto/); ms18 15:06 Pulse 64 MON; Pulse Ox 98% ; ms18 15:17 Pulse 64 MON; Pulse Ox 100% ; ms18 15:17 BP 171 / 76 (auto/); Resp 18; ms18 15:31 Pulse 60 MON; Pulse Ox 99% ; ms18 15:32 BP 139 / 65 (auto/); ms18 15:47 BP 133 / 82 (auto/); ms18 15:47 Pulse 60 MON; Pulse Ox 98% ; ms18 16:01 Pulse 64 MON; Pulse Ox 98% ; ms18 16:02 BP 136 / 67 (auto/); ms18 16:17 BP 146 / 70 (auto/); ms18 16:17 Pulse 62 MON; ms18 16:32 BP 150 / 76 (auto/); ms18 16:32 Pulse 60 MON; ms18 16:47 BP 138 / 74 (auto/); ms18 16:47 Pulse 62 MON; ms18 17:02 BP 137 / 70 (auto/); ms18 17:02 Pulse 60 MON; ms18 17:17 BP 140 / 74 (auto/); ms18 17:32 BP 164 / 77 (auto/); ms18 17:47 BP 149 / 74 (auto/); ms18 17:48 Pulse 62 MON; Pulse Ox 95% ; ms18 18:02 BP 137 / 65 (auto/); ms18 18:02 Pulse 58 MON; Pulse Ox 95% ; ms18 18:16 Pulse 60 MON; Pulse Ox 95% ; ms18 18:17 BP 165 / 77 (auto/); Resp 18; Temp 98.8; ms18 13:20 Body Mass Index 26.37 (61.23 kg, 152.40 cm) [facility] MDM: 14:03 Complete Comphrensive Metabolic Ordered. EDMS 14:03 CBC with Diff Ordered. EDMS 14:03 Type & Screen Ordered. EDMS 14:03 Pt & Aptt Ordered. EDMS 14:45 CBC with Diff Reviewed. le 15:21 Complete Comphrensive Metabolic Reviewed. le 15:21 Pt & Aptt Reviewed. le 15:41 Redraw Labs ordered. le 15:43 Redraw Labs complete. deg 15:43 HEMOGLOBIN & HEMATOCRIT Ordered. EDMS 18:06 HEMOGLOBIN & HEMATOCRIT Reviewed. le 18:08 Type & Screen Reviewed. le 03/15 09:48 T-Sheet-- Draft Copy was scanned into [employer]Box and attached to record. gb Signatures: Dispatcher [employer] EDLisa Carter, Mechanical Manufacturing Engineer Unit deg Mounika Gooden, Reg Reg gb Sarina Andrade, VP SALES VP SALES Angela Castillo,RN RN [id number] Jody Bui,RN RN ms18 The chart was reviewed and I authenticate all verbal orders and agree with the evaluation and treatment provided.Attachments: 09:48 T-Sheet-- Draft Copy gb Chart Complete MTDD
--- NOTE | 2016-03-16 19:49 | EDDOCDS ---
Physician Documentation [facility] Name: Emerald Lopez Age: 71 yrs Sex: Female : 1945 Arrival Date: 03/14/2016 Time: 13:04 Bed 4 Private MD: Brendan Ingram Disposition: 03/14/16 18:11 Discharged to Home/Self Care. Impression: Unspecified injury of rectum - post-hemorrhoidectomy bleeding. - Condition is Stable. - Discharge Instructions: Hemorrhoidectomy, Care After. - Medication Reconciliation, Local Pharmacy Hours form. - Follow up: Adarsh Nguyen MD; When: Call to arrange an appointment; Reason: Recheck today's complaints, Continuance of care. - Problem is new. - Symptoms have improved. - Notes: Return to the ED for any further concerns Historical: - Allergies: No known drug Allergies; - Home Meds: 1. donepezil 5 mg oral tab 1 tab nightly 2. indapamide 1.25 mg Oral tab 1 tab once daily 3. ferrous sulfate 325 mg (65 mg iron) Oral cpER daily 4. multivitamin Oral tab 1 tablet daily 5. omeprazole 40 mg Oral cpDR 1 cap once daily 6. valsartan 160 mg oral tab 1 tab nightly 7. pravastatin 20 mg oral tab 1 tab nightly - PMHx: CAD; Hypercholesterolemia; Hypertension; Dementia; - PSHx: Cholecystectomy; Hysterectomy; Cardiac stents; Eye Surgeries; - Social history: Smoking status: Patient states former smoker of tobacco. No barriers to communication noted, The patient speaks fluent Sinhala. - Family history: Not pertinent. - : The pt / caregiver states he / she is not on anticoagulants. Home medication list is obtained from the patient, family members. - Exposure Risk Screening:: None identified. Vital Signs: 03/14 13:07 BP 156 / 79; Pulse 60; Resp 18; Temp 98.5(O); Pulse Ox 100% on R/A; Weight 61.23 kg / jrd 134.99 lbs; Height 5 ft. 0 in. (152.40 cm) (R); Pain 0/10; 13:20 BP 155 / 78; Pulse 65; Resp 20; Temp 99.8(TE); Pulse Ox 100% on R/A; Weight 61.23 kg / jlf 134.99 lbs; Height 5 ft. 0 in. (152.40 cm); Pain 9/10; 13:38 BP 149 / 71 (auto/); ms18 13:38 Pulse 58 MON; Pulse Ox 98% ; ms18 13:47 BP 146 / 70 (auto/); ms18 13:48 Pulse 58 MON; Pulse Ox 98% ; ms18 14:02 BP 141 / 74 (auto/); ms18 14:02 Pulse 58 MON; Pulse Ox 96% ; ms18 14:17 BP 145 / 74 (auto/); ms18 14:18 Pulse 56 MON; Pulse Ox 97% ; ms18 14:32 BP 143 / 74 (auto/); ms18 14:32 Pulse 56 MON; Pulse Ox 97% ; ms18 14:47 Pulse 58 MON; Pulse Ox 99% ; ms18 14:47 BP 141 / 74 (auto/); ms18 15:02 BP 136 / 72 (auto/); ms18 15:06 Pulse 64 MON; Pulse Ox 98% ; ms18 15:17 Pulse 64 MON; Pulse Ox 100% ; ms18 15:17 BP 171 / 76 (auto/); Resp 18; ms18 15:31 Pulse 60 MON; Pulse Ox 99% ; ms18 15:32 BP 139 / 65 (auto/); ms18 15:47 BP 133 / 82 (auto/); ms18 15:47 Pulse 60 MON; Pulse Ox 98% ; ms18 16:01 Pulse 64 MON; Pulse Ox 98% ; ms18 16:02 BP 136 / 67 (auto/); ms18 16:17 BP 146 / 70 (auto/); ms18 16:17 Pulse 62 MON; ms18 16:32 BP 150 / 76 (auto/); ms18 16:32 Pulse 60 MON; ms18 16:47 BP 138 / 74 (auto/); ms18 16:47 Pulse 62 MON; ms18 17:02 BP 137 / 70 (auto/); ms18 17:02 Pulse 60 MON; ms18 17:17 BP 140 / 74 (auto/); ms18 17:32 BP 164 / 77 (auto/); ms18 17:47 BP 149 / 74 (auto/); ms18 17:48 Pulse 62 MON; Pulse Ox 95% ; ms18 18:02 BP 137 / 65 (auto/); ms18 18:02 Pulse 58 MON; Pulse Ox 95% ; ms18 18:16 Pulse 60 MON; Pulse Ox 95% ; ms18 18:17 BP 165 / 77 (auto/); Resp 18; Temp 98.8; ms18 13:20 Body Mass Index 26.37 (61.23 kg, 152.40 cm) [facility] MDM: 14:03 Complete Comphrensive Metabolic Ordered. EDMS 14:03 CBC with Diff Ordered. EDMS 14:03 Type & Screen Ordered. EDMS 14:03 Pt & Aptt Ordered. EDMS 14:45 CBC with Diff Reviewed. le 15:21 Complete Comphrensive Metabolic Reviewed. le 15:21 Pt & Aptt Reviewed. le 15:41 Redraw Labs ordered. le 15:43 Redraw Labs complete. deg 15:43 HEMOGLOBIN & HEMATOCRIT Ordered. EDMS 18:06 HEMOGLOBIN & HEMATOCRIT Reviewed. le 18:08 Type & Screen Reviewed. le 03/15 09:48 T-Sheet-- Draft Copy was scanned into Cherry and attached to record. gb Signatures: Dispatcher [employer] EDLisa Carter, Beet End Supervisor Unit deg Mounika Gooden, Reg Reg gb Sarina Andrade, CHIEF MINISTER CHIEF MINISTER Angela Castillo,RN RN [id number] Jody Bui,RN RN ms18 The chart was reviewed and I authenticate all verbal orders and agree with the evaluation and treatment provided.Attachments: 09:48 T-Sheet-- Draft Copy gb Chart Complete MTDD
--- NOTE | 2016-03-16 19:50 | EDDOCDS ---
Nurse's Notes [facility] Name: Emerald Lopez Age: 71 yrs Sex: Female : 1945 Arrival Date: 03/14/2016 Time: 13:04 Bed 4 Private MD: Brendan Ingram Diagnosis: Unspecified injury of vnwivb-xvsg-sgtaeqbvvyvyckng bleeding Presentation: 03/14 13:16 Presenting complaint: Patient states: Patient had a Hemoriod's removed on Monday and js13 started at approx 1200 today. Patient had an infusion Humate P at 0800. Adult Sepsis Screening: The patient does not have new or worsening altered mentation. Patient's respiratory rate is less than 22. Systolic blood pressure is greater than 100. Patient has a qSOFA score of 0- Negative Sepsis Screen. Suicide/Homicide risk assessment- the patient denies having any suicidal and/or homicidal ideations and does not present with any other emotional, behavioral or mental health complaints. Status: Patient is not a business services clerk or dependent. Transition of care: patient was not received from another setting of care. Red Flag criteria, patient assessed and taken directly to a bed. 13:16 Acuity: NEGRO Level 3 js13 13:16 Method Of Arrival: Walkin/Carried/Asstd js13 Triage Assessment: 13:21 General: Appears in no apparent distress, Behavior is appropriate for age, cooperative. js13 Pain: Denies pain. Neurological: Level of Consciousness is awake, alert. Respiratory: No deficits noted. Derm: Skin is pink, warm & dry. Historical: - Allergies: No known drug Allergies; - Home Meds: 1. donepezil 5 mg oral tab 1 tab nightly 2. indapamide 1.25 mg Oral tab 1 tab once daily 3. ferrous sulfate 325 mg (65 mg iron) Oral cpER daily 4. multivitamin Oral tab 1 tablet daily 5. omeprazole 40 mg Oral cpDR 1 cap once daily 6. valsartan 160 mg oral tab 1 tab nightly 7. pravastatin 20 mg oral tab 1 tab nightly - PMHx: CAD; Hypercholesterolemia; Hypertension; Dementia; - PSHx: Cholecystectomy; Hysterectomy; Cardiac stents; Eye Surgeries; - Social history: Smoking status: Patient states former smoker of tobacco. No barriers to communication noted, The patient speaks fluent Persian. - Family history: Not pertinent. - : The pt / caregiver states he / she is not on anticoagulants. Home medication list is obtained from the patient, family members. - Exposure Risk Screening:: None identified. Screenin:45 Screening information is obtained from the patient. Fall risk: No risks identified. ms18 Assistance ADL's: requires no assistance with activities of daily living. Abuse/DV Screen: The patient / caregiver reports he/she is: not in a situation that causes fear, pain or injury. Nutritional screening: No deficits noted. home support is adequate. 18:17 Advance Directives: There is no living will. ms18 Assessment: 13:45 General: Appears in no apparent distress, comfortable, Behavior is appropriate for age, ms18 cooperative, pleasant. Pain: Location: back and buttocks. Neurological: Level of Consciousness is awake, alert, obeys commands, Oriented to person, place, time. Respiratory: Airway is patent Respiratory effort is even, unlabored. GI: Reports rectal bleeding. Derm: Skin is pink, warm & dry. 14:30 General: Pt in no acute distress. VSS. Will continue to monitor pt. ms18 15:21 General: Appears in no apparent distress, comfortable, Behavior is appropriate for age, ms18 cooperative, pleasant. General: Pt in no acute distress. VSS. Sarina Andrade DROP WIRE OPERATOR was just in to see the pt and examine her rectal area. PT not actively bleeding at this time. . Pain: Location: gluteal cleft. Neurological: No deficits noted. Respiratory: No deficits noted. Derm: Skin is pink, warm & dry. 16:06 General: Appears in no apparent distress, comfortable, Behavior is appropriate for age, ms18 cooperative. General: H&H blood draw is for 1730 per L. Lupe DROP WIRE OPERATOR. Neurological: Level of Consciousness is awake, alert, obeys commands, Oriented to person, place, time. Respiratory: Airway is patent Respiratory effort is even, unlabored. Derm: Skin is pink, warm & dry. 18:46 General: Appears Behavior is appropriate for age, cooperative, pleasant. Pain: ms18 Location: gluteal cleft Pain currently is 3 out of 10 on a pain scale. Neurological: No deficits noted. Respiratory: Airway is patent Respiratory effort is even, unlabored. GI: Abdomen is non- distended. Derm: Skin is pink, warm & dry. Vital Signs: 13:07 BP 156 / 79; Pulse 60; Resp 18; Temp 98.5(O); Pulse Ox 100% on R/A; Weight 61.23 kg; jrd Height 5 ft. 0 in. (152.40 cm) (R); Pain 0/10; 13:20 BP 155 / 78; Pulse 65; Resp 20; Temp 99.8(TE); Pulse Ox 100% on R/A; Weight 61.23 kg; jlf Height 5 ft. 0 in. (152.40 cm); Pain 9/10; 13:38 BP 149 / 71 (auto/); ms18 13:38 Pulse 58 MON; Pulse Ox 98% ; ms18 13:47 BP 146 / 70 (auto/); ms18 13:48 Pulse 58 MON; Pulse Ox 98% ; ms18 14:02 BP 141 / 74 (auto/); ms18 14:02 Pulse 58 MON; Pulse Ox 96% ; ms18 14:17 BP 145 / 74 (auto/); ms18 14:18 Pulse 56 MON; Pulse Ox 97% ; ms18 14:32 BP 143 / 74 (auto/); ms18 14:32 Pulse 56 MON; Pulse Ox 97% ; ms18 14:47 Pulse 58 MON; Pulse Ox 99% ; ms18 14:47 BP 141 / 74 (auto/); ms18 15:02 BP 136 / 72 (auto/); ms18 15:06 Pulse 64 MON; Pulse Ox 98% ; ms18 15:17 Pulse 64 MON; Pulse Ox 100% ; ms18 15:17 BP 171 / 76 (auto/); Resp 18; ms18 15:31 Pulse 60 MON; Pulse Ox 99% ; ms18 15:32 BP 139 / 65 (auto/); ms18 15:47 BP 133 / 82 (auto/); ms18 15:47 Pulse 60 MON; Pulse Ox 98% ; ms18 16:01 Pulse 64 MON; Pulse Ox 98% ; ms18 16:02 BP 136 / 67 (auto/); ms18 16:17 BP 146 / 70 (auto/); ms18 16:17 Pulse 62 MON; ms18 16:32 BP 150 / 76 (auto/); ms18 16:32 Pulse 60 MON; ms18 16:47 BP 138 / 74 (auto/); ms18 16:47 Pulse 62 MON; ms18 17:02 BP 137 / 70 (auto/); ms18 17:02 Pulse 60 MON; ms18 17:17 BP 140 / 74 (auto/); ms18 17:32 BP 164 / 77 (auto/); ms18 17:47 BP 149 / 74 (auto/); ms18 17:48 Pulse 62 MON; Pulse Ox 95% ; ms18 18:02 BP 137 / 65 (auto/); ms18 18:02 Pulse 58 MON; Pulse Ox 95% ; ms18 18:16 Pulse 60 MON; Pulse Ox 95% ; ms18 18:17 BP 165 / 77 (auto/); Resp 18; Temp 98.8; ms18 13:20 Body Mass Index 26.37 (61.23 kg, 152.40 cm) [facility] Vitals: 13:07 Log In Time: March 14, 2016 at 13:05. jrd 13:07 RN notified that patient meets Red Flag criteria. [facility] ED Course: 13:06 Patient visited by Hesham Boogie PCA. jrd 13:06 Patient moved to Waiting jrd 13:07 Brendan Ingram is Private Physician. jrd 13:14 Jody Bui,RN is Primary Nurse. jlf 13:14 Patient moved to 4 jlf 13:18 Triage Initiated js13 13:20 Patient visited by Austyn Cifuentes PCA. jlf 13:21 Patient visited by Austyn Cifuentes PCA. jlf 13:22 Patient visited by Angela Solis,SUKHDEV. js13 13:44 Patient visited by Jody Bui,SUKHDEV. ms18 13:45 The patient / caregiver is instructed regarding the plan of care and ED course. ms18 Accompanied by Significant Other, Patient has correct armband on for positive identification. Bed in low position. Call light in reach. Side rails up X2. automotive finance manager on. Pulse ox on. NIBP on. Property :Personal belongings accompany Pt. 13:45 Inserted saline lock: 20 gauge in left forearm and blood collected. The patient ms18 tolerated the procedure well. 14:19 Pt & Aptt Sent. ms18 14:19 Type & Screen Sent. ms18 14:19 CBC with Diff Sent. ms18 14:19 Complete Comphrensive Metabolic Sent. ms18 14:44 Sarina Andrade FNP is PHCP. le 14:45 Patient visited by Jody Bui RN. ms18 15:05 Patient visited by Sarina Andrade FNP. le 15:06 Patient visited by Sarina Andrade FNP. le 15:21 Patient visited by Jody Bui RN. ms18 16:00 Patient visited by Jody Bui RN. ms18 16:51 Patient visited by Austyn Cifuentes PCA. jlf 17:34 Patient visited by Jody Bui RN. ms18 18:11 Adarsh Nguyen MD is Referral Physician. le 18:17 Discontinued IV lock intact, bleeding controlled, pressure dressing applied, No ms18 redness/swelling at site. No procedures done that require assistance. 18:46 Patient visited by Jody Bui RN. ms18 03/15 09:48 T-Sheet-- Draft Copy was scanned into [employer] and attached to record. gb Order Results: Lab Order: Complete Comphrensive Metabolic; SPEC'M 03/14/16 13:40 Test: GLUCOSE, FASTING; Value: 126; Range: 83-110; Abnormal: Above high normal; Units: MG/DL; Status: F Test: BLOOD UREA NITROGEN; Value: 10; Range: 7-18; Units: MG/DL; Status: F Test: CREATININE FOR GFR; Value: 0.60; Range: 0.55-1.02; Units: MG/DL; Status: F Test: GLOMERULAR FILTRATION RATE; Value: > 60.0; Range: >39; Status: F Test: SODIUM LEVEL; Value: 134; Range: 136-145; Abnormal: Below low normal; Units: MEQ/L; Status: F Test: POTASSIUM SERUM; Value: 3.2; Range: 3.5-5.1; Abnormal: Below low normal; Units: MEQ/L; Status: F Test: CHLORIDE LEVEL; Value: 95; Range: 98-107; Abnormal: Below low normal; Units: MEQ/L; Status: F Test: CARBON DIOXIDE LEVEL; Value: 29; Range: 21-32; Units: MEQ/L; Status: F Test: ANION GAP; Value: 10; Range: 8-16; Units: MEQ/L; Status: F Test: CALCIUM LEVEL; Value: 8.6; Range: 8.8-10.2; Abnormal: Below low normal; Units: MG/DL; Status: F Test: AST/SGOT; Value: 40; Range: 15-37; Abnormal: Above high normal; Units: U/L; Status: F Test: ALT/SGPT; Value: 83; Range: 12-78; Abnormal: Above high normal; Units: U/L; Status: F Test: ALKALINE PHOSPHATASE; Value: 83; Range: 45-117; Units: U/L; Status: F Test: BILIRUBIN,TOTAL; Value: 0.6; Range: 0.2-1.0; Units: MG/DL; Status: F Test: TOTAL PROTEIN; Value: 7.4; Range: 6.4-8.2; Units: GM/DL; Status: F Test: ALBUMIN; Value: 3.8; Range: 3.2-5.2; Units: GM/DL; Status: F Test: ALBUMIN/GLOBULIN RATIO; Value: 1.06; Range: 1.00-1.93; Status: F Test Note: ; Units are mL/min/1.73 m2 Chronic Kidney Disease Staging per NKF: Stage I & II GFR >=60 Normal to Mildly Decreased Stage III GFR 30-59 Moderately Decreased Stage IV GFR 15-29 Severely Decreased Stage V GFR <15 Very Little GFR Left ESRD GFR <15 on ANGLE DOZER OPERATOR Lab Order: CBC with Diff; SPEC'M 03/14/16 13:40 Test: WHITE BLOOD COUNT; Value: 6.3; Range: 4.0-10.0; Units: K/mm3; Status: F Test: RED BLOOD COUNT; Value: 4.23; Range: 4.00-5.40; Units: M/mm3; Status: F Test: HEMOGLOBIN; Value: 12.6; Range: 12.0-16.0; Units: g/dl; Status: F Test: HEMATOCRIT; Value: 36.4; Range: 36.0-47.0; Units: %; Status: F Test: MEAN CORPUSCULAR VOLUME; Value: 86.2; Range: 80.0-96.0; Units: fl; Status: F Test: MEAN CORPUSCULAR HEMOGLOBIN; Value: 29.9; Range: 27.0-33.0; Units: pg; Status: F Test: MEAN CORPUSCULAR HGB CONC; Value: 34.7; Range: 32.0-36.5; Units: g/dl; Status: F Test: RED CELL DISTRIBUTION WIDTH; Value: 12.6; Range: 11.5-14.5; Units: %; Status: F Test: PLATELET COUNT, AUTOMATED; Value: 169; Range: 150-450; Units: k/mm3; Status: F Test: NEUTROPHILS %; Value: 78.1; Range: 36.0-66.0; Abnormal: Above high normal; Units: %; Status: F Test: LYMPH %; Value: 12.7; Range: 24.0-44.0; Abnormal: Below low normal; Units: %; Status: F Test: MONO %; Value: 6.5; Range: 0.0-5.0; Abnormal: Above high normal; Units: %; Status: F Test: EOS %; Value: 0.6; Range: 0.0-3.0; Units: %; Status: F Test: BASO %; Value: 0.2; Range: 0.0-1.0; Units: %; Status: F Test: LARGE UNSTAINED CELL %; Value: 1.9; Range: 0.0-4.0; Units: %; Status: F Test: NEUTROPHILS #; Value: 5.0; Range: 1.8-7.7; Units: K/mm3; Status: F Test: LYMPH #; Value: 0.8; Range: 1.5-4.5; Abnormal: Below low normal; Units: K/mm3; Status: F Test: MONO #; Value: 0.4; Range: 0.0-0.8; Units: K/mm3; Status: F Test: EOS #; Value: 0.0; Range: 0.0-0.50; Units: K/mm3; Status: F Test: BASO #; Value: 0.0; Range: 0.0-0.2; Units: K/mm3; Status: F Test: LARGE UNSTAINED CELL #; Value: 0.1; Range: 0.0-0.4; Units: K/mm3; Status: F Lab Order: Type & Screen; SPEC'M 03/14/16 14:46 Test: BLOOD TYPE; Value: O POS; Status: F Test: AB SCREEN (INDIRECT LUANN)GEL; Value: NEGATIVE; Status: F Lab Order: Pt & Aptt; SPEC'M 03/14/16 13:40 Test: PROTHROMBIN TIME; Value: 13.1; Range: 12.3-14.5; Units: SECONDS; Status: F Test: INR; Value: 0.98; Status: F Test: PARTIAL THROMBOPLASTIN TIME; Value: 30.0; Range: 26.6-37.1; Units: SECONDS; Status: F Test Note: ; THERAPUTIC HUMAN INR VALUES INDICATIONS NORMAL RANGES PROPHYLAXIS/TREATMENT OF: VENOUS THROMBOSIS 2.0-3.0 PULMONARY EMBOLISM 2.0-3.0 PREVENTION OF SYSTEMIC EMBOLISM FROM: TISSUE HEART VALVES 2.0-3.0 ACUTE MYOCARDIAL INFARCTION 2.0-3.0 VALVULAR HEART DISEASE 2.0-3.0 ATRIAL FIBRILLATION 2.0-3.0 MECHANICAL VALVES(HIGH RISK) 2.5-3.5 RECURRENT MYOCARDIAL INFARCTION 2.5-3.5 Lab Order: HEMOGLOBIN & HEMATOCRIT; SPEC'M 03/14/16 17:42 Test: HEMOGLOBIN; Value: 12.6; Range: 12.0-16.0; Units: g/dl; Status: F Test: HEMATOCRIT; Value: 36.3; Range: 36.0-47.0; Units: %; Status: F Outcome: 03/14 18:11 Discharge ordered by Provider. ty 18:17 Discharge Assessment: Patient awake, alert and oriented x 3. No cognitive and/or ms18 functional deficits noted. Patient verbalized understanding of disposition instructions. patient administered narcotics - no. The following High Risk Discharge criteria are identified: None. Discharged to home ambulatory, with significant other. Condition: good Condition: stable Condition: improved. Discharge instructions given to patient, Instructed on discharge instructions, follow up and referral plans. Demonstrated understanding of instructions, Pt was receptive of discharge instructions/ teaching. No special radiology studies were completed. 18:49 Patient left the ED. ms18 Signatures: Mounika Gooden, Sarina Posadas, DROP WIRE OPERATOR DROP WIRE OPERATOR Angela Castillo,RN RN js13 Austyn Cifuentes, DREDGE CAPTAIN DREDGE CAPTAIN theodoref Jody Bui RN RN ms18 Hesham Boogie, DREDGE CAPTAIN DREDGE CAPTAIN jrd Chart Complete MTDD
== END 2016-03-14 18:49 | disposition home or self-care (01) ==
LOC: M ED 13:04
DX: K62.5 Hemorrhage of anus and rectum (principal); Z98.890 Other specified postprocedural states; I10 Essential (primary) hypertension; I25.10 Atherosclerotic heart disease of native coronary artery without angina pectoris; E78.00 Pure hypercholesterolemia, unspecified; K64.9 Unspecified hemorrhoids; D68.0 Von Willebrand disease; F03.90 Unspecified dementia, unspecified severity, without behavioral disturbance, psychotic disturbance, mood disturbance, and anxiety; Z79.899 Other long term (current) drug therapy; Z87.891 Personal history of nicotine dependence
CPT/HCPCS: 36415; 80053; 85014; 85018; 85025; 85027; 85610; 85730; 86850; 86900; 86901; 96365; 96375; 99284; J1200; J7187

== ENCOUNTER 2016-03-15 08:06 | Outpatient (CLI) | payer OTHER ==
[~2016-03-15] VITALS: Ht 152.4 cm; Wt 58.0 kg
[2016-03-15] MEDS ORDERED: diphenhydrAMINE INJ 50MG/ML VIAL (J1200) IV ONE (08:30)
[2016-03-15] MEDS ORDERED: ANTIHEMOPHILIC FACTOR IV ONE (08:30)
[2016-03-15] MEDS ORDERED: [UNRECOGNIZED DRUG - OTHER] IV ONE (08:30)
[2016-03-15] MEDS ORDERED: DILUENT IV ONE (08:30)
[2016-03-15 08:36] LABS: MEAN CORPUSCULAR HEMOGLOBIN 30.4 pg (27.0-33.0); MEAN CORPUSCULAR HGB CONC 35.5 g/dl (32.0-36.5); MEAN CORPUSCULAR VOLUME 85.7 fl (80.0-96.0); RED CELL DISTRIBUTION WIDTH 12.7 % (11.5-14.5); WHITE BLOOD COUNT 6.3 K/mm3 (4.0-10.0)
== END 2016-03-15 09:55 | disposition home or self-care (01) ==
LOC: M INFU 08:06
PROVIDERS: ATTEND Internal Medicine Medical Oncology
DX: D68.0 Von Willebrand disease (principal)
CPT/HCPCS: 36415; 85027; 96365; 96374; J1200; J7187

== ENCOUNTER → 2016-03-18 | Outpatient (REF) | payer OTHER | END | disposition home or self-care (01) | LOC: M LAB REF 09:36 | PROVIDERS: ATTEND Surgery | DX: R19.7 Diarrhea, unspecified (principal) ==

== ENCOUNTER → 2016-06-08 | Outpatient (REF) | payer OTHER ==
[2016-06-08 16:03] LABS: MEAN CORPUSCULAR HEMOGLOBIN 28.3 pg (27.0-33.0); MEAN CORPUSCULAR HGB CONC 32.4 g/dl (32.0-36.5); MEAN CORPUSCULAR VOLUME 87.3 fl (80.0-96.0); RED CELL DISTRIBUTION WIDTH 12.8 % (11.5-14.5); WHITE BLOOD COUNT 4.8 K/mm3 (4.0-10.0)
[2016-06-08 16:44] LABS: ALBUMIN 4.1 GM/DL (3.2-5.2); ALBUMIN/GLOBULIN RATIO 1.32 (1.00-1.93); ALKALINE PHOSPHATASE 64 U/L (45-117); ALT/SGPT 24 U/L (12-78); ANION GAP 8 MEQ/L (8-16); AST/SGOT 23 U/L (15-37); BILIRUBIN,TOTAL 0.5 MG/DL (0.2-1.0); BLOOD UREA NITROGEN 9 MG/DL (7-18); CALCIUM LEVEL 9.2 MG/DL (8.8-10.2); CARBON DIOXIDE LEVEL 32 MEQ/L (21-32); CHLORIDE LEVEL 100 MEQ/L (98-107); CREATININE FOR GFR 0.63 MG/DL (0.55-1.02); GLOMERULAR FILTRATION RATE > 60.0 (>39); GLUCOSE, FASTING 111 MG/DL (83-110); SODIUM LEVEL 140 MEQ/L (136-145); TOTAL PROTEIN 7.2 GM/DL (6.4-8.2)
[2016-06-08 17:08] LABS: FOLATE > 24.0 NG/ML; VITAMIN B12 LEVEL 823 PG/ML
== END ==
LOC: M LABDRAW1 15:34
PROVIDERS: ATTEND Internal Medicine
DX: I10 Essential (primary) hypertension (principal); D64.9 Anemia, unspecified; F09 Unspecified mental disorder due to known physiological condition; F34.1 Dysthymic disorder
CPT/HCPCS: 36415; 80053; 82607; 82746; 84443; 85027; G0463

== ENCOUNTER → 2017-05-31 | Outpatient (REF) | payer OTHER ==
[2017-05-31 12:58] LABS: BASO % 0.5 % (0.0-1.0); EOS % 0.4 % (0.0-3.0); HEMATOCRIT 37.1 % (36.0-47.0); HEMOGLOBIN 12.1 g/dl (12.0-15.5); IMMATURE GRANULOCYTE % 0.3 % (0-3.0); LYMPH # 1.2 10^3/uL (1.5-4.5); LYMPH % 15.9 % (24.0-44.0); MEAN CORPUSCULAR HEMOGLOBIN 26.5 pg (27.0-33.0); MEAN CORPUSCULAR HGB CONC 32.6 g/dl (32.0-36.5); MEAN CORPUSCULAR VOLUME 81.2 fl (80.0-96.0); MONO # 0.5 10^3/uL (0.0-0.8); MONO % 6.9 % (0.0-5.0); NEUTROPHILS # 5.6 10^3/uL (1.8-7.7); PLATELET COUNT, AUTOMATED 220 10^3/uL (150-450); RED BLOOD COUNT 4.57 10^6/uL (4.00-5.40); RED CELL DISTRIBUTION WIDTH 12.8 % (11.5-14.5); WHITE BLOOD COUNT 7.4 10^3/uL (4.0-10.0)
[2017-05-31 13:50] LABS: ALBUMIN 4.2 GM/DL (3.2-5.2); ALBUMIN/GLOBULIN RATIO 1.24 (1.00-1.93); ALKALINE PHOSPHATASE 57 U/L (45-117); ALT/SGPT 23 U/L (12-78); ANION GAP 7 MEQ/L (8-16); AST/SGOT 29 U/L (7-37); BILIRUBIN,TOTAL 0.3 MG/DL (0.2-1.0); BLOOD UREA NITROGEN 13 MG/DL (7-18); CALCIUM LEVEL 9.1 MG/DL (8.8-10.2); CARBON DIOXIDE LEVEL 30 MEQ/L (21-32); CHLORIDE LEVEL 103 MEQ/L (98-107); CREATININE FOR GFR 0.61 MG/DL (0.55-1.30); FREE T4 1.08 NG/DL (0.76-1.46); GLOMERULAR FILTRATION RATE > 60.0 (>39); GLUCOSE, FASTING 109 MG/DL (70-100); POTASSIUM SERUM 4.1 MEQ/L (3.5-5.1); SODIUM LEVEL 140 MEQ/L (136-145); TOTAL PROTEIN 7.6 GM/DL (6.4-8.2)
== END ==
LOC: M SFHCPLAZ 12:01
DX: R63.4 Abnormal weight loss (principal)
CPT/HCPCS: 84443

== ENCOUNTER → 2017-07-26 | Outpatient (REF) | payer OTHER ==
[2017-07-26 11:56] LABS: HEMATOCRIT 34.9 % (36.0-47.0); HEMOGLOBIN 11.2 g/dl (12.0-15.5); MEAN CORPUSCULAR HEMOGLOBIN 25.1 pg (27.0-33.0); MEAN CORPUSCULAR HGB CONC 32.1 g/dl (32.0-36.5); MEAN CORPUSCULAR VOLUME 78.3 fl (80.0-96.0); PLATELET COUNT, AUTOMATED 238 10^3/uL (150-450); RED BLOOD COUNT 4.46 10^6/uL (4.00-5.40); RED CELL DISTRIBUTION WIDTH 14.1 % (11.5-14.5); WHITE BLOOD COUNT 5.3 10^3/uL (4.0-10.0)
[2017-07-26 12:24] LABS: ALBUMIN 4.2 GM/DL (3.2-5.2); ALBUMIN/GLOBULIN RATIO 1.27 (1.00-1.93); ALKALINE PHOSPHATASE 53 U/L (45-117); ALT/SGPT 24 U/L (12-78); ANION GAP 9 MEQ/L (8-16); AST/SGOT 23 U/L (7-37); BILIRUBIN,TOTAL 0.4 MG/DL (0.2-1.0); BLOOD UREA NITROGEN 13 MG/DL (7-18); CALCIUM LEVEL 8.9 MG/DL (8.8-10.2); CARBON DIOXIDE LEVEL 29 MEQ/L (21-32); CHLORIDE LEVEL 101 MEQ/L (98-107); CHOLESTEROL LEVEL 173 MG/DL (<200); CHOLESTEROL RISK RATIO 1.647 (<5); CREATININE FOR GFR 0.63 MG/DL (0.55-1.30); GLOMERULAR FILTRATION RATE > 60.0 (>39); GLUCOSE, FASTING 111 MG/DL (70-100); HDL CHOLESTEROL 105 MG/DL (>40); LDL CHOLESTEROL 57.8 MG/DL (<100); MAGNESIUM LEVEL 2.1 MG/DL (1.8-2.4); NON-HDL-C 68 MG/DL; POTASSIUM SERUM 3.6 MEQ/L (3.5-5.1); SODIUM LEVEL 139 MEQ/L (136-145); THYROID STIMULATING HORMONE 0.974 uIU/ML (0.358-3.740); TOTAL PROTEIN 7.5 GM/DL (6.4-8.2); TRIGLYCERIDES LEVEL 51 MG/DL (<150)
== END ==
LOC: M SFHCPLAZ 09:50
DX: F34.1 Dysthymic disorder (principal); I10 Essential (primary) hypertension; I25.10 Atherosclerotic heart disease of native coronary artery without angina pectoris
CPT/HCPCS: 83735

== ENCOUNTER → 2018-05-23 | Outpatient (REF) | payer MEDICARE ==
[~2018-05-23] MED LIST changes: -AMLO2.5T PO; +AMLO2.5T3 PO; +ARIC1TAB PO; -ARIC5TAB PO; -VALS1TAB46 PO; -VALS1TAB47 PO; +VALS1TAB66 PO; +VALS1TAB67 PO
[2018-05-23 14:11] LABS: ALBUMIN 4.4 GM/DL (3.2-5.2); ALT/SGPT 23 U/L (12-78); BILIRUBIN,TOTAL 0.4 MG/DL (0.2-1.0); BLOOD UREA NITROGEN 16 MG/DL (7-18); CALCIUM LEVEL 9.2 MG/DL (8.8-10.2); CARBON DIOXIDE LEVEL 31 MEQ/L (21-32); CHLORIDE LEVEL 101 MEQ/L (98-107); CREATININE FOR GFR 0.68 MG/DL (0.55-1.30); FOLATE 20.5 NG/ML; GLOMERULAR FILTRATION RATE > 60.0 (>39); GLUCOSE, FASTING 108 MG/DL (70-100); POTASSIUM SERUM 3.7 MEQ/L (3.5-5.1); RHEUMATOID FACTOR QUANT < 10.0 IU/ML (<15.0); SODIUM LEVEL 139 MEQ/L (136-145); TOTAL PROTEIN 7.6 GM/DL (6.4-8.2); VITAMIN B12 LEVEL 648 PG/ML
[2018-05-23 14:20] LABS: HEMOGLOBIN A1c 6.3 %
[2018-05-23 15:12] LABS: ERYTHROCYTE SEDIMENTATION RATE 8 mm/hr (0-30)
[2018-05-23 15:51] LABS: BASO % 0.8 % (0.0-1.0); EOS # 0.1 10^3/uL (0.0-0.50); EOS % 1.9 % (0.0-3.0); HEMATOCRIT 41.9 % (36.0-47.0); HEMOGLOBIN 13.7 g/dl (12.0-15.5); LYMPH # 0.9 10^3/uL (1.5-4.5); LYMPH % 22.5 % (24.0-44.0); MEAN CORPUSCULAR HEMOGLOBIN 28.2 pg (27.0-33.0); MEAN CORPUSCULAR HGB CONC 32.7 g/dl (32.0-36.5); MEAN CORPUSCULAR VOLUME 86.2 fl (80.0-96.0); MONO # 0.4 10^3/uL (0.0-0.8); MONO % 10.3 % (0.0-5.0); NEUTROPHILS # 2.4 10^3/uL (1.8-7.7); NEUTROPHILS % 64.2 % (36.0-66.0); PLATELET COUNT, AUTOMATED 213 10^3/uL (150-450); RED BLOOD COUNT 4.86 10^6/uL (4.00-5.40); WHITE BLOOD COUNT 3.8 10^3/uL (4.0-10.0)
[2018-05-24 13:25] LABS: ALBUMIN 4.47 GM/DL (3.29-5.55); ALBUMIN % 58.8 % (55.8-66.1); ALPHA-1-GLOBULIN % 3.9 % (2.9-4.9); ALPHA-2-GLOBULINS 1.02 GM/DL (0.42-0.99); ALPHA-2-GLOBULINS % 13.4 % (7.1-11.8); BETA-1-GLOBULINS 0.53 GM/DL (0.28-0.60); BETA-2-GLOBULINS 0.37 GM/DL (0.19-0.55); BETA-2-GLOBULINS % 4.9 % (3.2-6.5); GAMMA GLOBULINS 0.91 GM/DL (0.65-1.58)
[2018-05-25 10:03] LABS: DRVV SCREEN 34.1 SEC
[2018-05-25 10:04] LABS: PTT LUPUS TYPE ANTICOAG SCREEN 0.8 (0-1.2)
[2018-05-27 00:07] LABS: VITAMIN E(ALPHA TOCOPHEROL) 14.4 mg/L (9.0-29.0); VITAMIN E(GAMMA TOCOPHEROL) 1.3 mg/L (0.5-4.9)
[2018-05-27 15:50] LABS: VITAMIN B1 LEVEL WHOLE BLOOD 100.8 nmol/L (66.5-200.0); VITAMIN B6,PYRIDOXAL PHOSPHATE 19.8 ug/L (2.0-32.8)
[2018-05-29 00:06] LABS: ANCA-ATYPICAL <1:20 titer (Neg:<1:20); ANTI DOUBLE STRAND-DNA AB 1 IU/mL (0-9); ANTINUCLEAR ANTIBODIES DIRECT Negative (Negative); COPPER PLASMA 104 ug/dL (72-166); CYTOPLASMIC NEUTROP AB ANCA-C <1:20 titer (Neg:<1:20); LEAD BLOOD ADULT <1 ug/dL (0-4); Lyme Disease IgG/IgM Antibodie <0.91 ISR (0.00-0.90); Lyme Disease IgM Ab Quantitati <0.80 index (0.00-0.79); MERCURY LEVEL None Detected ug/L (0.0-14.9); PERINUCLEAR AB ANCA-P <1:20 titer (Neg:<1:20); SJOGREN'S ANTI SS-A <0.2 AI (0.0-0.9); SJOGREN'S ANTI SS-B <0.2 AI (0.0-0.9)
== END ==
LOC: M LABNEURO 08:35
PROVIDERS: ATTEND Psychiatry & Neurology Neurology
DX: F09 Unspecified mental disorder due to known physiological condition (principal); E07.9 Disorder of thyroid, unspecified

== ENCOUNTER → 2018-09-25 | Outpatient (REF) | payer MEDICARE ==
[2018-09-25 15:57] LABS: BASO % 0.3 % (0.0-1.0); EOS % 0.5 % (0.0-3.0); HEMATOCRIT 39.7 % (36.0-47.0); LYMPH # 1.2 10^3/uL (1.5-4.5); LYMPH % 19.3 % (24.0-44.0); MEAN CORPUSCULAR HGB CONC 32.7 g/dl (32.0-36.5); MEAN CORPUSCULAR VOLUME 82.5 fl (80.0-96.0); MONO # 0.6 10^3/uL (0.0-0.8); NEUTROPHILS # 4.2 10^3/uL (1.8-7.7); NEUTROPHILS % 69.6 % (36.0-66.0); PLATELET COUNT, AUTOMATED 245 10^3/uL (150-450); RED BLOOD COUNT 4.81 10^6/uL (4.00-5.40)
[2018-09-25 16:27] LABS: ALBUMIN 3.9 GM/DL (3.2-5.2); ALT/SGPT 21 U/L (12-78); BILIRUBIN,TOTAL 0.6 MG/DL (0.2-1.0); BLOOD UREA NITROGEN 9 MG/DL (7-18); CALCIUM LEVEL 9.1 MG/DL (8.8-10.2); CARBON DIOXIDE LEVEL 31 MEQ/L (21-32); CHLORIDE LEVEL 94 MEQ/L (98-107); CREATININE FOR GFR 0.56 MG/DL (0.55-1.30); FREE T3 2.9 PG/ML (2.2-4.0); FREE T4 1.27 NG/DL (0.76-1.46); GLOMERULAR FILTRATION RATE > 60.0 (>39); GLUCOSE, FASTING 96 MG/DL (70-100); POTASSIUM SERUM 3.6 MEQ/L (3.5-5.1); SODIUM LEVEL 134 MEQ/L (136-145)
== END ==
LOC: M SFHCPLAZ 13:42
PROVIDERS: ATTEND Internal Medicine
DX: R63.4 Abnormal weight loss (principal)
CPT/HCPCS: 36415; 80053; 84439; 84443; 84481; 85025; G0463

== ENCOUNTER → 2018-09-26 | Outpatient (REF) | payer MEDICARE | LOC: M SFHCPLAZ 12:35 | PROVIDERS: ATTEND Internal Medicine | DX: R19.7 Diarrhea, unspecified (principal) ==

== ENCOUNTER → 2018-10-05 | Outpatient (CLI) | payer MEDICARE ==
[~2018-10-05] MED LIST changes: +GASTROGRAFIN SOLUTION 30ML (Q9963) As Ordered ONE; +ISOVUE-370 76% 100ML VIAL (Q9967) As Ordered ONE
--- NOTE | 2018-10-05 17:29 | REP ---
CT abdomen with IV and oral contrast: History: Diarrhea and weight loss. No comparison CT study. CT contrast dose: 100 ml of intravenous Isovue [address] findings: Preliminary digital fence installer helper radiograph shows scoliotic curve of the thoracolumbar spine and clips and sutures in the left upper quadrant of the abdomen. The lung bases are free of infiltrate. No pleural effusion is seen. Liver and the spleen are normal in size homogeneous in texture. The gallbladder surgically absent. There are surgical clips in the left upper quadrant is due to the stomach. No adrenal lesion is seen. The kidneys enhance symmetrically and are morphologically intact. There is a 0.9 cm cyst in the head of the pancreas in the uncinate process. No pancreatic ductal dilation is seen. No pancreatic mass lesion is observed. The gallbladder is surgically absent. Small and large bowel loops are unremarkable in the abdomen. No retroperitoneal mass or adenopathy is seen. Normal caliber aorta. No abdominal wall defect is seen. No evidence of free intraperitoneal air. No bony destructive lesion is appreciated. Impression: Postoperative changes status post cholecystectomy and appendectomy and left upper quadrant surgery. There is a 9 mm cyst in the head of the pancreas. This is of uncertain significance. If there are prior abdominal CT imaging studies these would be helpful for comparison. Failing this, recommend follow-up CT study and 4-6 months. Electronically Signed by Jamal Yanes MD 10/08/2018 08:22 A
== END ==
LOC: M RAD 13:59
PROVIDERS: ATTEND Internal Medicine
DX: R19.7 Diarrhea, unspecified (principal); R63.4 Abnormal weight loss; K86.2 Cyst of pancreas; Z90.49 Acquired absence of other specified parts of digestive tract
CPT/HCPCS: 74160; Q9963; Q9967

== ENCOUNTER → 2018-11-05 | Outpatient (CLI) | payer MEDICARE ==
[~2018-11-05] MED LIST changes: +CALTCHW5 PO; +CITA20TA6 PO; -GASTROGRAFIN SOLUTION 30ML (Q9963) As Ordered ONE; +IRBE150T12 PO; -ISOVUE-370 76% 100ML VIAL (Q9967) As Ordered ONE; +MULTCAP PO; -OMEP40CA2 PO; +OMEP40CA97 PO
[2018-11-05 11:22] LABS: BLOOD UREA NITROGEN 10 MG/DL (7-18); CREATININE FOR GFR 0.61 MG/DL (0.55-1.30); FREE T4 1.26 NG/DL (0.76-1.46); GLOMERULAR FILTRATION RATE > 60.0 (>39); LIPASE 120 U/L (73-393)
[2018-11-06 10:06] LABS: CA19-9 TUMOR MARKER,CARBOHYDRA 6.8 U/ML (<35.0)
[2018-11-08 00:06] LABS: CHROMOGRANIN A 1 nmol/L (0-5); GASTRIN 38 pg/mL (0-115); TISSUE TRANSGLUTAMINASE IgA <2 U/mL (0-3)
== END ==
LOC: M LAB 09:41
PROVIDERS: ATTEND Internal Medicine Gastroenterology
DX: R63.4 Abnormal weight loss (principal)

== ENCOUNTER → 2018-11-12 | Outpatient (CLI) | payer MEDICARE ==
[~2018-11-12] MED LIST changes: -CALTCHW5 PO; -CITA20TA6 PO; -IRBE150T12 PO; -MULTCAP PO; +OMEP40CA2 PO; -OMEP40CA97 PO; +PROHANCE 279.3MG/ML 15ML VIAL (A9576) As Ordered ONE
--- NOTE | 2018-11-12 15:23 | REP ---
MRI PANCREAS WITH AND WITHOUT CONTRAST: COMPARISON: CT 10/05/2018 and 06/07/2017. Once again a cyst is identified in the uncinate process of the pancreas measuring 9 mm in diameter. This is stable. No pancreatic duct dilatation is seen. No other mass or cyst is seen of the pancreas. The patient has had a prior cholecystectomy. Common bile duct has a maximum diameter of 9 mm. There is no definite stricture or filling defect involving the common bile duct. The visualized liver demonstrates no mass. The visualized spleen, adrenals and pancreas are unremarkable. No adenopathy is seen. No free fluid is seen. IMPRESSION: Stable 9 mm cyst in the uncinate process of the pancreas with no suspicious enhancement. Recommend followup MRI in one year. Electronically Signed by Juan Antonio Zurita MD 11/13/2018 09:58 A
== END ==
LOC: M RAD 13:01
PROVIDERS: ATTEND Internal Medicine Gastroenterology
DX: K86.2 Cyst of pancreas (principal)
CPT/HCPCS: 74183; A9576

== ENCOUNTER → 2019-05-22 | Outpatient (REF) | payer MEDICARE ==
[~2019-05-22] MED LIST changes: +CALTCHW5 PO; +CITA20TA6 PO; +IRBE150T7 PO; +MULTCAP PO; -OMEP40CA2 PO; +OMEP40CA97 PO; -PROHANCE 279.3MG/ML 15ML VIAL (A9576) As Ordered ONE
[2019-05-22 17:26] LABS: HEMATOCRIT 43.1 % (36.0-47.0); HEMOGLOBIN 13.6 g/dl (12.0-15.5); MEAN CORPUSCULAR HEMOGLOBIN 27.5 pg (27.0-33.0); MEAN CORPUSCULAR HGB CONC 31.6 g/dl (32.0-36.5); MEAN CORPUSCULAR VOLUME 87.2 fl (80.0-96.0); PLATELET COUNT, AUTOMATED 240 10^3/uL (150-450); RED BLOOD COUNT 4.94 10^6/uL (4.00-5.40); WHITE BLOOD COUNT 5.7 10^3/uL (4.0-10.0)
[2019-05-22 17:36] LABS: ALBUMIN 4.1 GM/DL (3.2-5.2); ALT/SGPT 24 U/L (12-78); BILIRUBIN,TOTAL 0.3 MG/DL (0.2-1.0); BLOOD UREA NITROGEN 27 MG/DL (7-18); CALCIUM LEVEL 9.9 MG/DL (8.8-10.2); CARBON DIOXIDE LEVEL 29 MEQ/L (21-32); CHLORIDE LEVEL 106 MEQ/L (98-107); CHOLESTEROL LEVEL 236 MG/DL (<200); CHOLESTEROL RISK RATIO 1.873 (<5); CREATININE FOR GFR 0.66 MG/DL (0.55-1.30); GLOMERULAR FILTRATION RATE > 60.0 (>39); GLUCOSE, FASTING 120 MG/DL (70-100); HDL CHOLESTEROL 126 MG/DL (>40); LDL CHOLESTEROL 95 MG/DL (<100); MAGNESIUM LEVEL 2.2 MG/DL (1.8-2.4); NON-HDL-C 110 MG/DL; POTASSIUM SERUM 3.5 MEQ/L (3.5-5.1); SODIUM LEVEL 141 MEQ/L (136-145); TOTAL PROTEIN 7.9 GM/DL (6.4-8.2); TRIGLYCERIDES LEVEL 77 MG/DL (<150)
== END ==
LOC: M SFHCPLAZ 14:05
PROVIDERS: ATTEND Internal Medicine
DX: D68.0 Von Willebrand disease (principal); D64.9 Anemia, unspecified; I10 Essential (primary) hypertension; I25.10 Atherosclerotic heart disease of native coronary artery without angina pectoris
CPT/HCPCS: 36415; 80053; 80061; 83735; 85027; G0463

== ENCOUNTER → 2019-11-12 | Outpatient (CLI) | payer SELFPAY ==
[~2019-11-12] MED LIST changes: -ASPI81TA85 PO; +ASPI81TA86 PO
== END ==
LOC: M LABSMTC 09:56
PROVIDERS: ATTEND Pediatrics
DX: Z20.828 Contact with and (suspected) exposure to other viral communicable diseases (principal)

== ENCOUNTER → 2019-11-21 | Outpatient (CLI) | payer SELFPAY | LOC: M LABSMTC 12:51 | PROVIDERS: ATTEND Pediatrics | DX: Z20.828 Contact with and (suspected) exposure to other viral communicable diseases (principal) ==

== ENCOUNTER → 2019-12-02 | Outpatient (REF) | payer MEDICARE ==
[2019-12-02 13:51] LABS: BASO % 0.6 % (0.0-1.0); EOS % 0.4 % (0.0-3.0); HEMOGLOBIN 12.6 g/dl (12.0-15.5); LYMPH % 19.6 % (24.0-44.0); MEAN CORPUSCULAR HEMOGLOBIN 28.8 pg (27.0-33.0); MEAN CORPUSCULAR HGB CONC 31.5 g/dl (32.0-36.5); MEAN CORPUSCULAR VOLUME 91.3 fl (80.0-96.0); MONO # 0.5 10^3/uL (0.0-0.8); MONO % 9.6 % (0.0-5.0); NEUTROPHILS # 3.5 10^3/uL (1.5-8.5); NEUTROPHILS % 69.6 % (36.0-66.0); PLATELET COUNT, AUTOMATED 217 10^3/uL (150-450); RED BLOOD COUNT 4.38 10^6/uL (4.00-5.40)
[2019-12-02 14:31] LABS: ALBUMIN 3.7 GM/DL (3.2-5.2); ALT/SGPT 20 U/L (12-78); BILIRUBIN,TOTAL 0.5 MG/DL (0.2-1.0); BLOOD UREA NITROGEN 21 MG/DL (7-18); CALCIUM LEVEL 9.3 MG/DL (8.8-10.2); CARBON DIOXIDE LEVEL 32 MEQ/L (21-32); CHLORIDE LEVEL 106 MEQ/L (98-107); CHOLESTEROL LEVEL 215 MG/DL (<200); CHOLESTEROL RISK RATIO 2.028 (<5); CREATININE FOR GFR 0.58 MG/DL (0.55-1.30); GLOMERULAR FILTRATION RATE > 60.0 (>39); GLUCOSE, FASTING 85 MG/DL (70-100); HDL CHOLESTEROL 106 MG/DL (>40); LDL CHOLESTEROL 95 MG/DL (<100); MAGNESIUM LEVEL 2.3 MG/DL (1.8-2.4); NON-HDL-C 109 MG/DL; POTASSIUM SERUM 3.9 MEQ/L (3.5-5.1); SODIUM LEVEL 142 MEQ/L (136-145); TRIGLYCERIDES LEVEL 70 MG/DL (<150)
== END ==
LOC: M SFHCPLAZ 09:34
PROVIDERS: ATTEND Internal Medicine
DX: I25.10 Atherosclerotic heart disease of native coronary artery without angina pectoris (principal); I10 Essential (primary) hypertension; D68.0 Von Willebrand disease; F34.1 Dysthymic disorder
CPT/HCPCS: 36415; 80053; 80061; 83735; 84443; 85025; G0463; G8483

== ENCOUNTER → 2020-05-13 | Outpatient (REF) | payer MEDICARE ==
[~2020-05-13] MED LIST changes: -LISI-538 PO; +LISI20TA33 PO
[2020-05-13 13:45] LABS: BASO % 0.9 % (0.0-1.0); EOS % 0.9 % (0.0-3.0); HEMATOCRIT 40.1 % (36.0-47.0); HEMOGLOBIN 12.3 g/dl (12.0-15.5); LYMPH % 22.9 % (24.0-44.0); MEAN CORPUSCULAR HEMOGLOBIN 27.2 pg (27.0-33.0); MEAN CORPUSCULAR HGB CONC 30.7 g/dl (32.0-36.5); MEAN CORPUSCULAR VOLUME 88.5 fl (80.0-96.0); MONO # 0.5 10^3/uL (0.0-0.8); MONO % 10.5 % (2.0-8.0); NEUTROPHILS # 2.8 10^3/uL (1.5-8.5); NEUTROPHILS % 64.6 % (36.0-66.0); PLATELET COUNT, AUTOMATED 206 10^3/uL (150-450); RED BLOOD COUNT 4.53 10^6/uL (4.00-5.40); WHITE BLOOD COUNT 4.4 10^3/uL (4.0-10.0)
[2020-05-13 14:12] LABS: ALT/SGPT 28 U/L (12-78); BILIRUBIN,TOTAL 0.4 MG/DL (0.2-1.0); BLOOD UREA NITROGEN 32 MG/DL (7-18); CALCIUM LEVEL 9.3 MG/DL (8.8-10.2); CARBON DIOXIDE LEVEL 31 MEQ/L (21-32); CHLORIDE LEVEL 106 MEQ/L (98-107); CREATININE FOR GFR 0.64 MG/DL (0.55-1.30); GLOMERULAR FILTRATION RATE > 60.0 (>39); GLUCOSE, FASTING 179 MG/DL (70-100); POTASSIUM SERUM 3.9 MEQ/L (3.5-5.1); SODIUM LEVEL 141 MEQ/L (136-145); TOTAL PROTEIN 7.5 GM/DL (6.4-8.2)
[2020-05-13 14:13] LABS: ALBUMIN 4.1 GM/DL (3.2-5.2); MAGNESIUM LEVEL 2.5 MG/DL (1.8-2.4)
== END ==
LOC: M SFHCPLAZ 10:19
PROVIDERS: ATTEND Internal Medicine
DX: D64.9 Anemia, unspecified (principal); I10 Essential (primary) hypertension
CPT/HCPCS: 36415; 80053; 83735; 85025; G0463

== ENCOUNTER → 2020-06-10 | Outpatient (REF) | payer MEDICARE | LOC: M SFHCPLAZ 13:42 | PROVIDERS: ATTEND Internal Medicine | DX: Z00.8 Encounter for other general examination (principal) ==

== ENCOUNTER → 2020-10-12 | Outpatient (CLI) | payer MEDICARE ==
[~2020-10-12] MED LIST changes: +OMEP40CA4 PO; -OMEP40CA97 PO
== END ==
LOC: M PLAIMG 12:43
PROVIDERS: ATTEND Internal Medicine
DX: I10 Essential (primary) hypertension (principal); Z23 Encounter for immunization
CPT/HCPCS: 71046; 90732; G0009; G0463

== ENCOUNTER 2021-06-03 11:31 | Inpatient (IN) | payer MEDICARE ==
[~2021-06-03] VITALS: Ht 152.4 cm; Wt 42.5 kg
[2021-06-03 12:41] LABS: VENOUS BASE EXCESS 1.4 (-2.0-2.0); VENOUS HCO3 24.7 MEQ/L (23.0-27.0); VENOUS O2 SATURATION 99.2 % (60.0-80.0); VENOUS PARTIAL PRESSURE CO2 34.6 mmHg (38.0-50.0); VENOUS PARTIAL PRESSURE O2 149.9 mmHg (30.0-50.0); VENOUS PH 7.471 UNITS (7.330-7.430); VENOUS STANDARD HCO3 25.8 MEQ/L; VENOUS TOTAL CO2 25.7 MEQ/L (24.0-28.0)
[2021-06-03 12:59] LABS: BASO % 0.2 % (0.0-1.0); HEMATOCRIT 37.5 % (36.0-47.0); HEMOGLOBIN 12.1 g/dl (12.0-15.5); LYMPH # 0.3 10^3/uL (1.5-5.0); LYMPH % 3.1 % (24.0-44.0); MEAN CORPUSCULAR HEMOGLOBIN 29.5 pg (27.0-33.0); MEAN CORPUSCULAR HGB CONC 32.3 g/dl (32.0-36.5); MEAN CORPUSCULAR VOLUME 91.5 fl (80.0-96.0); MONO # 0.4 10^3/uL (0.0-0.8); MONO % 3.6 % (2.0-8.0); NEUTROPHILS # 9.6 10^3/uL (1.5-8.5); NEUTROPHILS % 92.7 % (36.0-66.0); PLATELET COUNT, AUTOMATED 361 10^3/uL (150-450); WHITE BLOOD COUNT 10.4 10^3/uL (4.0-10.0)
[2021-06-03 13:06] LABS: ALBUMIN 3.4 GM/DL (3.2-5.2); ALT/SGPT 89 U/L (12-78); BILIRUBIN,DIRECT 0.2 MG/DL (0.0-0.2); BILIRUBIN,TOTAL 0.4 MG/DL (0.2-1.0); BLOOD UREA NITROGEN 58 MG/DL (7-18); CALCIUM LEVEL 9.8 MG/DL (8.8-10.2); CARBON DIOXIDE LEVEL 25 MEQ/L (21-32); CHLORIDE LEVEL 117 MEQ/L (98-107); CREATININE FOR GFR 0.86 MG/DL (0.55-1.30); GLOMERULAR FILTRATION RATE > 60.0 (>39); GLUCOSE, FASTING 219 MG/DL (70-100); POTASSIUM SERUM 3.8 MEQ/L (3.5-5.1); SODIUM LEVEL 151 MEQ/L (136-145); TOTAL PROTEIN 7.1 GM/DL (6.4-8.2)
[2021-06-03 13:36] LABS: RSV AMPLIFICATION NEGATIVE (NEGATIVE)
[2021-06-03] MEDS ORDERED: NS 500 ML IV ONE (14:15)
[2021-06-03] MEDS ORDERED: ACETAMINOPHEN 650 MG SUPP PR ONE (14:15)
[2021-06-03] MEDS ORDERED: cefTRIAXone SOD 1 GM in D5W MINI-BAG PLUS 50 ML IV ONE (14:25)
[2021-06-03] MEDS ORDERED: NS 0.45% 1,000 ML IV ONE (14:45)
[2021-06-03] MEDS ORDERED: MED NOTE (14:54)
[2021-06-03] MEDS ORDERED: HOME MED LIST COMPLETE! XX SCH (14:55)
[2021-06-03] MEDS ORDERED: DEXTROSE 50% 50 ML SYRINGE IV PRN (16:35)
[2021-06-03] MEDS ORDERED: GLUCAGON INJ 1MG VIAL SC PRN (16:35)
[2021-06-03] MEDS ORDERED: GLUCOSE 4GM CHEW TABLET PO PRN (16:35)
[2021-06-03 17:30] VITALS: BP 129/85
[2021-06-03] MEDS: D5W/0.45% SODIUM CHLORIDE 1,000 ML IV SCH (18:14)
[2021-06-03 21:00] VITALS: BP 140/96
[2021-06-04 06:00] VITALS: BP 139/98
[2021-06-04] MEDS: D5W/0.45% SODIUM CHLORIDE 1,000 ML IV SCH (06:21)
[2021-06-04 08:28] LABS: BASO % 0.1 % (0.0-1.0); HEMATOCRIT 34.1 % (36.0-47.0); LYMPH # 0.5 10^3/uL (1.5-5.0); LYMPH % 4.6 % (24.0-44.0); MEAN CORPUSCULAR HEMOGLOBIN 29.8 pg (27.0-33.0); MEAN CORPUSCULAR HGB CONC 32.3 g/dl (32.0-36.5); MEAN CORPUSCULAR VOLUME 92.4 fl (80.0-96.0); MONO # 0.7 10^3/uL (0.0-0.8); MONO % 6.4 % (2.0-8.0); NEUTROPHILS # 9.3 10^3/uL (1.5-8.5); NEUTROPHILS % 88.4 % (36.0-66.0); PLATELET COUNT, AUTOMATED 275 10^3/uL (150-450); RED BLOOD COUNT 3.69 10^6/uL (4.00-5.40); WHITE BLOOD COUNT 10.5 10^3/uL (4.0-10.0)
[2021-06-04 08:53] LABS: BLOOD UREA NITROGEN 42 MG/DL (7-18); CARBON DIOXIDE LEVEL 23 MEQ/L (21-32); CHLORIDE LEVEL 124 MEQ/L (98-107); CREATININE FOR GFR 0.64 MG/DL (0.55-1.30); GLOMERULAR FILTRATION RATE > 60.0 (>39); GLUCOSE, FASTING 226 MG/DL (70-100); POTASSIUM SERUM 3.2 MEQ/L (3.5-5.1); SODIUM LEVEL 154 MEQ/L (136-145)
[2021-06-04] MEDS ORDERED: cefTRIAXone SOD 1 GM in D5W MINI-BAG PLUS 50 ML IV SCH (15:00)
[2021-06-04] MEDS ORDERED: KETOROLAC 30 MG/ML 1ML VIAL IV PRN (16:30)
[2021-06-04] MEDS ORDERED: MORPHINE 4 MG/ML 1ML VIAL/SYRINGE IV PRN (16:35)
[2021-06-04] MEDS ORDERED: MORPHINE 2 MG/ML 1ML VIAL IV ONE (16:35)
[2021-06-04] MEDS: KCL 40MEQ in NS 1000ML 1,000 ML IV SCH (16:46)
[2021-06-04 17:37] LABS: BLOOD UREA NITROGEN 41 MG/DL (7-18); CALCIUM LEVEL 8.5 MG/DL (8.8-10.2); CARBON DIOXIDE LEVEL 24 MEQ/L (21-32); CHLORIDE LEVEL 121 MEQ/L (98-107); CREATININE FOR GFR 0.75 MG/DL (0.55-1.30); GLOMERULAR FILTRATION RATE > 60.0 (>39); GLUCOSE, FASTING 218 MG/DL (70-100); POTASSIUM SERUM 3.3 MEQ/L (3.5-5.1); SODIUM LEVEL 153 MEQ/L (136-145)
[2021-06-04] MEDS: KCL 20MEQ IN D5W 1000ML 1,000 ML IV SCH (20:45)
[2021-06-04 22:00] VITALS: BP 114/70
[2021-06-04 23:24] LABS: BLOOD UREA NITROGEN 34 MG/DL (7-18); CALCIUM LEVEL 8.1 MG/DL (8.8-10.2); CARBON DIOXIDE LEVEL 23 MEQ/L (21-32); CHLORIDE LEVEL 127 MEQ/L (98-107); CREATININE FOR GFR 0.58 MG/DL (0.55-1.30); GLOMERULAR FILTRATION RATE > 60.0 (>39); GLUCOSE, FASTING 199 MG/DL (70-100); POTASSIUM SERUM 3.8 MEQ/L (3.5-5.1); SODIUM LEVEL 155 MEQ/L (136-145)
[2021-06-05 06:00] VITALS: BP 152/103
[2021-06-05 06:17] LABS: BASO % 0.1 % (0.0-1.0); HEMATOCRIT 30.3 % (36.0-47.0); HEMOGLOBIN 9.5 g/dl (12.0-15.5); LYMPH # 0.7 10^3/uL (1.5-5.0); LYMPH % 7.3 % (24.0-44.0); MEAN CORPUSCULAR HEMOGLOBIN 29.1 pg (27.0-33.0); MEAN CORPUSCULAR HGB CONC 31.4 g/dl (32.0-36.5); MEAN CORPUSCULAR VOLUME 92.9 fl (80.0-96.0); MONO # 0.7 10^3/uL (0.0-0.8); MONO % 6.6 % (2.0-8.0); NEUTROPHILS # 8.5 10^3/uL (1.5-8.5); NEUTROPHILS % 85.6 % (36.0-66.0); PLATELET COUNT, AUTOMATED 188 10^3/uL (150-450); RED BLOOD COUNT 3.26 10^6/uL (4.00-5.40)
[2021-06-05] MEDS: KCL 20MEQ IN D5W 1000ML 1,000 ML IV SCH (06:34)
[2021-06-05 06:39] LABS: BLOOD UREA NITROGEN 30 MG/DL (7-18); CALCIUM LEVEL 8.1 MG/DL (8.8-10.2); CARBON DIOXIDE LEVEL 23 MEQ/L (21-32); CHLORIDE LEVEL 123 MEQ/L (98-107); CREATININE FOR GFR 0.57 MG/DL (0.55-1.30); GLOMERULAR FILTRATION RATE > 60.0 (>39); GLUCOSE, FASTING 210 MG/DL (70-100); POTASSIUM SERUM 3.6 MEQ/L (3.5-5.1); SODIUM LEVEL 152 MEQ/L (136-145)
[2021-06-05] MEDS ORDERED: CEFEPIME HCL 1 GM in D5W MINI-BAG PLUS 50 ML IV SCH (08:00)
[2021-06-05 10:31] VITALS: BP 113/74
[2021-06-05 14:00] VITALS: BP 108/76
[2021-06-05] MEDS: KCL 40MEQ in NS 1000ML 1,000 ML IV SCH (15:26)
[2021-06-05] MEDS ORDERED: ATROPINE SULFATE 1% OP SOLN 2 ML BTL SL PRN (15:50)
[2021-06-05] MEDS ORDERED: LORazepam 2 MG/ML VIAL IV PRN (15:50)
[2021-06-05] MEDS ORDERED: SCOPOLAMINE 1MG TRANSDERMAL PATCH TOP SCH (15:50)
[2021-06-05] MEDS: MORPHINE 2 MG/ML 1ML VIAL IV SCH ×3 (17:27→18:37)
[2021-06-05] MEDS: MORPHINE SULF IN 0.9% NACL 100 MG in IV 1 EA IV SCH ×2 (19:13)
[2021-06-07] MEDS: MORPHINE SULF IN 0.9% NACL 100 MG in IV 1 EA IV SCH ×2 (01:36)
[2021-06-07] MEDS ORDERED: LORazepam 2 MG/ML VIAL IV STA (08:49)
== END 2021-06-07 14:10 | disposition expired | DRG 698 ==
LOC: M ED 11:31 → EDBD 11:31 → M ED INP 14:40 → ENRESERV 15:55 → M MS5PR 16:55
PROVIDERS: ADMIT General Practice; ATTEND General Practice
DX: T83.518A Infection and inflammatory reaction due to other urinary catheter, initial encounter (principal); L89.153 Pressure ulcer of sacral region, stage 3; A41.9 Sepsis, unspecified organism; G93.41 Metabolic encephalopathy; D68.0 Von Willebrand disease; R64 Cachexia; E87.0 Hyperosmolality and hypernatremia; E46 Unspecified protein-calorie malnutrition; F03.90 Unspecified dementia, unspecified severity, without behavioral disturbance, psychotic disturbance, mood disturbance, and anxiety; I10 Essential (primary) hypertension; K22.70 Barrett's esophagus without dysplasia; I25.10 Atherosclerotic heart disease of native coronary artery without angina pectoris; Z51.5 Encounter for palliative care; Z66 Do not resuscitate; I25.2 Old myocardial infarction; D64.9 Anemia, unspecified; F34.1 Dysthymic disorder; B95.2 Enterococcus as the cause of diseases classified elsewhere; R62.7 Adult failure to thrive; Y84.6 Urinary catheterization as the cause of abnormal reaction of the patient, or of later complication, without mention of misadventure at the time of the procedure; E86.0 Dehydration; B96.20 Unspecified Escherichia coli [E. coli] as the cause of diseases classified elsewhere; Z74.1 Need for assistance with personal care; Z98.41 Cataract extraction status, right eye; Z98.42 Cataract extraction status, left eye; Z90.49 Acquired absence of other specified parts of digestive tract